=== PATIENT | male | born 1995 | race African-American/Black ===

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

== ENCOUNTER 2018-09-01 16:15 | Emergency (ER) | payer OTHER ==
[~2018-09-01] VITALS: Ht 167.6 cm; Wt 90.0 kg
[~2018-09-01 16:15] MED LIST: ALBU17IN INH; FLON1SPR; VALA500T5 PO; ZOFR4TAB14 PO; ZYRT10CA PO
[2018-09-01] MEDS ORDERED: IBUP-1114 PO (17:27)
[2018-09-01 18:12] VITALS: BP 139/79
--- NOTE | 2018-09-02 07:51 | REP ---
RIGHT SECOND DIGIT, FOUR VIEWS: Four views of the right second digit performed. There is no acute fracture, dislocation or intrinsic bone disease. IMPRESSION: No fracture or dislocation. Electronically Signed by Isaiah Mora MD 09/02/2018 08:41 A
== END 2018-09-01 18:41 | disposition home or self-care (01) ==
LOC: M ED 16:15
DX: S60.021A Contusion of right index finger without damage to nail, initial encounter (principal); W23.0XXA Caught, crushed, jammed, or pinched between moving objects, initial encounter; Y92.099 Unspecified place in other non-institutional residence as the place of occurrence of the external cause; Y93.89 Activity, other specified; Y99.9 Unspecified external cause status; J45.909 Unspecified asthma, uncomplicated; Z88.0 Allergy status to penicillin

== ENCOUNTER 2018-11-24 01:37 | Emergency (ER) | payer OTHER ==
[~2018-11-24] VITALS: Ht 167.6 cm; Wt 88.6 kg
[~2018-11-24 01:37] MED LIST changes: +IBUP-1114 PO
[2018-11-24] MEDS ORDERED: KETOROLAC 60 MG/2 ML VIAL (J1885) IM ONE (02:30)
[2018-11-24 03:04] VITALS: BP 141/75
--- NOTE | 2018-11-24 07:37 | REP ---
Clinical: Trauma. Technique: AP, lateral, bilateral oblique views of the right elbow. Findings: Oblique view demonstrates a very subtle lucency through the proximal radial head and subtle nondisplaced fracture cannot definitively be excluded. Presumptive treatment and followup examination may be warranted. No other fracture dislocation is appreciated. Anterior and posterior fat pads appear relatively normal in position suggesting that the possibility of radial head fracture actually represents lucency created by technical factors and adjacent soft tissue. Impression: Cannot definitively exclude a subtle nondisplaced radial head fracture. Correlation and follow up is recommended. Electronically Signed by Davonte Blanca MD 11/24/2018 07:28 A
--- NOTE | 2018-11-24 12:40 | ED PDOC ---
Post-Departure Follow-Up ED foam charger asked to call pt, disclose possible radial head fx, ensure sling an d refer to jaspreet. formal report of right elbow faxed to Yasir Acuna MD Nov 24, 2018 12:40
== END 2018-11-24 03:06 | disposition home or self-care (01) ==
LOC: M ED 01:37
DX: S50.11XA Contusion of right forearm, initial encounter (principal); R93.7 Abnormal findings on diagnostic imaging of other parts of musculoskeletal system; W21.81XA Striking against or struck by football helmet, initial encounter; Y92.410 Unspecified street and highway as the place of occurrence of the external cause; Y93.61 Activity, american tackle football; Y99.8 Other external cause status; J45.909 Unspecified asthma, uncomplicated; D84.9 Immunodeficiency, unspecified; Z88.0 Allergy status to penicillin
CPT/HCPCS: 73080; 96372; 99284; J1885

== ENCOUNTER 2018-12-13 09:45 | Outpatient (RCR) | payer OTHER | END 2018-12-16 | LOC: M OT 09:45 | DX: S52.124D Nondisplaced fracture of head of right radius, subsequent encounter for closed fracture with routine healing (principal) ==

== ENCOUNTER 2019-01-07 13:00 | Outpatient (RCR) | payer OTHER | END 2019-01-16 | LOC: M OT 13:00 | DX: S52.124D Nondisplaced fracture of head of right radius, subsequent encounter for closed fracture with routine healing (principal) ==

== ENCOUNTER 2019-02-18 18:11 | Emergency (ER) | payer OTHER ==
[~2019-02-18] VITALS: Ht 167.6 cm; Wt 78.2 kg
[2019-02-18] MEDS ORDERED: ONDANSETRON 4 MG ORAL DISINTEGRATING TAB (Q0162 PER 1MG) PO ONE (20:15)
[2019-02-18 20:17] LABS: BASO % 0.2 % (0.0-1.0); EOS # 0.1 10^3/uL (0.0-0.5); EOS % 1.3 % (0.0-3.0); HEMATOCRIT 50.5 % (42.0-52.0); HEMOGLOBIN 16.5 g/dl (13.5-17.5); LYMPH # 0.8 10^3/uL (1.5-5.0); LYMPH % 15.8 % (24.0-44.0); MEAN CORPUSCULAR HEMOGLOBIN 27.1 pg (27.0-33.0); MEAN CORPUSCULAR HGB CONC 32.7 g/dl (32.0-36.5); MEAN CORPUSCULAR VOLUME 82.9 fl (80.0-96.0); MONO # 0.3 10^3/uL (0.0-0.8); MONO % 6.2 % (0.0-5.0); NEUTROPHILS # 4.1 10^3/uL (1.5-8.5); NEUTROPHILS % 76.3 % (36.0-66.0); PLATELET COUNT, AUTOMATED 314 10^3/uL (150-450); RED BLOOD COUNT 6.09 10^6/uL (4.30-6.10); WHITE BLOOD COUNT 5.3 10^3/uL (4.0-10.0)
[2019-02-18] MEDS ORDERED: DICYCLOMINE 10 MG CAP PO ONE (20:30)
[2019-02-18] MEDS ORDERED: ACETAMINOPHEN 325 MG TAB PO ONE (20:30)
[2019-02-18 20:50] LABS: ALBUMIN 4.1 GM/DL (3.2-5.2); ALT/SGPT 51 U/L (12-78); BILIRUBIN,DIRECT 0.1 MG/DL (0.0-0.2); BILIRUBIN,TOTAL 0.8 MG/DL (0.2-1.0); BLOOD UREA NITROGEN 7 MG/DL (7-18); CALCIUM LEVEL 9.4 MG/DL (8.5-10.1); CARBON DIOXIDE LEVEL 23 MEQ/L (21-32); CHLORIDE LEVEL 103 MEQ/L (98-107); CREATININE FOR GFR 0.92 MG/DL (0.70-1.30); GLOMERULAR FILTRATION RATE > 60.0 (>60); GLUCOSE, FASTING 298 MG/DL (70-100); LIPASE 113 U/L (73-393); POTASSIUM SERUM 4.9 MEQ/L (3.5-5.1); SODIUM LEVEL 135 MEQ/L (136-145); TOTAL PROTEIN 8.3 GM/DL (6.4-8.2)
[2019-02-18 21:45] LABS: INFLUENZA A AMPLIFICATION NEGATIVE (NEGATIVE); INFLUENZA B AMPLIFICATION NEGATIVE (NEGATIVE)
--- NOTE | 2019-02-18 21:51 | REPVR ---
PROCEDURE INFORMATION: Exam: CT Abdomen And Pelvis Without Contrast Exam date and time: 02/18/2019 8:41 PM Age: 23 years old Clinical history: Abdominal pain; Localized; Left lower quadrant (llq); Additional info: Llq pain, contrast ax TECHNIQUE: Imaging protocol: Computed tomography of the abdomen and pelvis without contrast. Radiation optimization: All CT scans at this facility use at least one of these dose optimization techniques: automated exposure control; mA and/or kV adjustment per patient size (includes targeted exams where dose is matched to clinical indication); or iterative reconstruction. COMPARISON: No relevant prior studies available. FINDINGS: Liver: Normal. No mass. Gallbladder and bile ducts: Normal. No calcified stones. No ductal dilation. Pancreas: Normal. No ductal dilation. Spleen: Normal. No splenomegaly. Adrenals: Normal. No mass. Kidneys and ureters: Normal. No hydronephrosis. Stomach and bowel: Unremarkable. No obstruction. No mucosal thickening. Appendix: No evidence of appendicitis. Intraperitoneal space: Unremarkable. No free air. No significant fluid collection. Vasculature: Unremarkable. No abdominal aortic aneurysm. Lymph nodes: Unremarkable. No enlarged lymph nodes. Bladder: Unremarkable as visualized. Reproductive: Unremarkable as visualized. Bones/joints: Unremarkable. No acute fracture. Soft tissues: Unremarkable. IMPRESSION: No obstructive uropathy or acute inflammatory process. Electronically signed by: Andrez Sommers On 02/18/2019 21:51:40 PM
[2019-02-18 22:29] VITALS: BP 136/79
[2019-02-18] MEDS ORDERED: ONDA4TAB6 PO (22:54)
[2019-02-18 23:21] LABS: HEMOGLOBIN A1c 12.9 %
--- NOTE | 2019-02-19 15:37 | ECGEPIP ---
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
== END 2019-02-18 23:17 | disposition home or self-care (01) ==
LOC: M ED 18:11
DX: R10.32 Left lower quadrant pain (principal); R11.2 Nausea with vomiting, unspecified; J45.909 Unspecified asthma, uncomplicated; D83.9 Common variable immunodeficiency, unspecified; Z88.0 Allergy status to penicillin; Z91.048 Other nonmedicinal substance allergy status
CPT/HCPCS: 36415; 74176; 80048; 80076; 81001; 83036; 83690; 85025; 87502; 93005; 99284; Q0162

== ENCOUNTER → 2019-03-04 | Outpatient (REF) | payer OTHER, MEDICAID ==
[~2019-03-04] MED LIST changes: +ONDA4TAB6 PO
[2019-03-04 14:07] LABS: BASO % 0.5 % (0.0-1.0); EOS # 0.2 10^3/uL (0.0-0.5); EOS % 4.3 % (0.0-3.0); HEMATOCRIT 46.4 % (42.0-52.0); HEMOGLOBIN 14.6 g/dl (13.5-17.5); LYMPH # 1.6 10^3/uL (1.5-5.0); LYMPH % 41.4 % (24.0-44.0); MEAN CORPUSCULAR HEMOGLOBIN 27.5 pg (27.0-33.0); MEAN CORPUSCULAR HGB CONC 31.5 g/dl (32.0-36.5); MEAN CORPUSCULAR VOLUME 87.5 fl (80.0-96.0); MONO # 0.5 10^3/uL (0.0-0.8); MONO % 13.6 % (0.0-5.0); NEUTROPHILS # 1.6 10^3/uL (1.5-8.5); NEUTROPHILS % 39.9 % (36.0-66.0); PLATELET COUNT, AUTOMATED 340 10^3/uL (150-450)
[2019-03-04 14:17] LABS: ALBUMIN 3.7 GM/DL (3.2-5.2); ALT/SGPT 51 U/L (12-78); BILIRUBIN,TOTAL 0.6 MG/DL (0.2-1.0); BLOOD UREA NITROGEN 10 MG/DL (7-18); CALCIUM LEVEL 9.1 MG/DL (8.5-10.1); CARBON DIOXIDE LEVEL 28 MEQ/L (21-32); CHLORIDE LEVEL 105 MEQ/L (98-107); CHOLESTEROL LEVEL 134 MG/DL (<200); CHOLESTEROL RISK RATIO 5.583 (<5); CREATININE FOR GFR 0.81 MG/DL (0.70-1.30); FREE T4 1.04 NG/DL (0.76-1.46); GLOMERULAR FILTRATION RATE > 60.0 (>60); GLUCOSE, FASTING 228 MG/DL (70-100); HDL CHOLESTEROL 24 MG/DL (>40); LDL CHOLESTEROL 89 MG/DL (<100); NON-HDL-C 110 MG/DL; POTASSIUM SERUM 4.2 MEQ/L (3.5-5.1); SODIUM LEVEL 138 MEQ/L (136-145); TOTAL PROTEIN 7.1 GM/DL (6.4-8.2); TRIGLYCERIDES LEVEL 105 MG/DL (<150)
[2019-03-04 14:20] LABS: TOTAL 25(OH) VITAMIN D 14.2 NG/ML (30.0-100.0)
[2019-03-04 14:29] LABS: HEMOGLOBIN A1c 11.4 %
== END ==
LOC: M LAB REF 13:40
PROVIDERS: ATTEND Nurse Practitioner Family
DX: Z13.9 Encounter for screening, unspecified (principal); Z13.29 Encounter for screening for other suspected endocrine disorder

== ENCOUNTER 2019-03-27 07:37 | Inpatient (IN) | payer MEDICAID, OTHER ==
[~2019-03-27] VITALS: Ht 167.6 cm; Wt 78.0 kg
[2019-03-27] MEDS ORDERED: IBUPROFEN 800 MG TAB PO ONE (08:00)
[2019-03-27] MEDS ORDERED: NS 1,000 ML IV ONE (08:15)
[2019-03-27 08:54] LABS: BASO % 0.2 % (0.0-1.0); EOS # 0.1 10^3/uL (0.0-0.5); EOS % 0.7 % (0.0-3.0); HEMATOCRIT 40.8 % (42.0-52.0); HEMOGLOBIN 13.4 g/dl (13.5-17.5); LYMPH # 0.9 10^3/uL (1.5-5.0); LYMPH % 9.1 % (24.0-44.0); MEAN CORPUSCULAR HEMOGLOBIN 28.3 pg (27.0-33.0); MEAN CORPUSCULAR HGB CONC 32.8 g/dl (32.0-36.5); MEAN CORPUSCULAR VOLUME 86.3 fl (80.0-96.0); MONO # 0.5 10^3/uL (0.0-0.8); NEUTROPHILS # 8.2 10^3/uL (1.5-8.5); NEUTROPHILS % 84.8 % (36.0-66.0); PLATELET COUNT, AUTOMATED 339 10^3/uL (150-450); RED BLOOD COUNT 4.73 10^6/uL (4.30-6.10); WHITE BLOOD COUNT 9.6 10^3/uL (4.0-10.0)
[2019-03-27 09:27] LABS: MONO SCRN NEGATIVE (NEGATIVE)
[2019-03-27 09:28] LABS: ALBUMIN 3.6 GM/DL (3.2-5.2); ALT/SGPT 39 U/L (12-78); BILIRUBIN,DIRECT 0.2 MG/DL (0.0-0.2); BILIRUBIN,TOTAL 1.7 MG/DL (0.2-1.0); LIPASE 76 U/L (73-393); TOTAL PROTEIN 7.4 GM/DL (6.4-8.2)
[2019-03-27 09:38] LABS: INFLUENZA A AMPLIFICATION NEGATIVE (NEGATIVE); INFLUENZA B AMPLIFICATION NEGATIVE (NEGATIVE)
[2019-03-27] MEDS ORDERED: LevoFLOXacin IV 750 MG in IV 1 EA IV ONE (10:00)
[2019-03-27 10:13] LABS: IMMUNOGLOBULIN G 897 MG/DL (681-1648); IMMUNOGLOBULIN M 64.7 MG/DL (40-230)
[2019-03-27] MEDS ORDERED: ACETAMINOPHEN TAB 650MG DOSE (2X325MG) PO PRN (11:00)
[2019-03-27] MEDS ORDERED: ALBUTEROL 90 MCG/ACT 8GM HFA INHALER INH PRN (11:00)
[2019-03-27] MEDS ORDERED: guaiFENesin DM LIQ 10ML UD PO PRN (11:00)
[2019-03-27] MEDS: NS 1,000 ML IV SCH ×2 (11:06→22:02)
--- NOTE | 2019-03-27 11:18 | HPEPDOC ---
General Date of Admission 03/27/19 Date of Service: Mar 27, 2019 Chief Complaint The patient is a 23-year-old male admitted with a reason for visit of Cold Symptoms. Source: Patient Exam Limitations: No limitations Timing/Duration: Other (since last ) Severity: Moderate Associated Symptoms: Fever, Chills, Headaches History of Present Illness Old -[place] male with past medical history of common variable immunodeficiency disorder developed fever, chills, cough with sputum with blood since last and he came to work today and was sent to ED for further care. In the emergency room he was found to be febrile with a 101 and chest x- ray shows right upper lobe infiltrate and we were called in for admission. Patient denies any other complaints including chest pain, nausea, vomiting, diarrhea. Home Medications No Active Prescriptions or Reported Meds Allergies Coded Allergies: Contrast Media (Verified Allergy, Unknown, 02/18/19) PT SAYS HE "PASSES OUT" AND GETS "CHILLS" amoxicillin (Verified Allergy, Unknown, 09/01/18) clavulanic acid (Verified Allergy, Unknown, 09/01/18) Past Medical History Medical History common vaeriable immunodeficiency disorder Surgical History None Social History * Smoker: Denies Alcohol: Denies Drugs: denies A-FIB/CHADSVASC A-FIB History Current/History of A-Fib/PAF?: No Review of Systems Constitutional: Reports: Chills, Fever Eyes: Denies: Pain, Vision change, Conjunctivae inflammation, Eyelid inflammation, Redness, Other ENT: Denies: Head Aches, Ear Pain, Dysphagia, Sinus Congestion, Post Nasal Drip, Sore Throat, Epistaxis, Other Symptoms Skin: Denies: Rash, Lesions, Jaundice, Bruising, Itching, Dry, Breakdown, Nail Changes, Other Pulmonary: Reports: Dyspnea, Cough Cardiovascular: Denies: Chest Pain, Palpitations, Orthopnea, Paroxysmal Noc. Dyspnea, Edema, Lt Headedness, Other Symptoms Gastrointestinal: Denies: Nausea, Vomiting, Abdominal Pain, Diarrhea, Constipation, Melena, Hematochezia, Other Symptoms Genitourinary: Denies: Dysuria, Frequency, Incontinence, Hematuria, Retention, Other Symptoms Hematologic: Denies: Bruising, Bleeding Excessively, Petecchia, Purpura, Enlarged Lymph Nodes, Other Hematologic Endocrine: Denies: Polydipsia, Polyphagia, Polyuria, Heat Intolerance, Cold Intolerance, Other Endocrine Sx Musculoskeletal: Denies: Neck Pain, Back Pain, Shoulder Pain, Arm Pain, Hand Pain, Leg Pain, Foot Pain, Joint Pain, Muscle Pain, Spasms, Other Symptoms Neurological: Denies: Weakness, Numbness, Incoordination, Change in speech, Confusion, Seizures, Other Symptoms Psych: Denies: Mood Normal, Anxiety, Depression, Memory Issues, Thoughts of Self Harm, Anger, Thoughts of Harming Other, Other Psych Physical Examination General Exam: Positive: Alert, Cooperative Eye Exam: Positive: PERRLA, Conjunctiva & lids normal ENT Exam: Positive: Atraumatic, Mucous membr. moist/pink Neck Exam: Positive: Supple Chest Exam: Positive: Rhonchi (bronchitis audible right upper lobe) Heart Exam: Positive: Rate Normal, Normal S1, Normal S2 Abdomen Exam: Positive: Normal bowel sounds, Soft, Tenderness Extremity Exam: Positive: Normal pulses Skin Exam: Positive: Nl turgor and temperature Neuro Exam: Positive: Normal Gait, Strength at 5/5 X4 ext, Cranial Nerves 3-12 NL Psych Exam: Positive: Mental status NL, Mood NL, Oriented x 3 Vital Signs Vital Signs Date Time Temp Pulse Resp B/P (MAP) Pulse Ox O2 Delivery O2 Flow Rate FiO2 03/27/19 09:30 100.3 107 18 127/59 (81) 100 Room Air Laboratory Data Labs 24H Laboratory Tests 2 03/27/19 08:19: Immature Granulocyte % (Auto) 0.2, Neutrophils (%) (Auto) 84.8H, Lymphocytes (%) (Auto) 9.1L, Monocytes (%) (Auto) 5.0, Eosinophils (%) (Auto) 0.7, Basophils (%) (Auto) 0.2, Neutrophils # (Auto) 8.2, Lymphocytes # (Auto) 0.9L, Monocytes # (Auto) 0.5, Eosinophils # (Auto) 0.1, Basophils # (Auto) 0.0, Nucleated Red Blood Cells % (auto) 0.0, Total Bilirubin 1.7H, Direct Bilirubin 0.2, Aspartate Amino Transf (AST/SGOT) 89H, Alanine Aminotransferase (ALT/SGPT) 39, Alkaline Phosphatase 143H, Total Protein 7.4, Albumin 3.6, Albumin/Globulin Ratio 0.95L, Lipase 76, Immunoglobulin A 631.0H, Immunoglobulin G 897, Immunoglobulin M 64.7, Monoscreen NEGATIVE, Influenza Type A (RT-PCR) NEGATIVE, Influenza Type B (RT- PCR) NEGATIVE, Respiratory Syncytial Virus (RT-PCR NEGATIVE 03/27/19 08:38: POC Glucose (Misc Panel) 191H, POC Sodium (Misc Panel) 137, POC Potassium (Misc Panel) 3.6, POC Chloride (Misc Panel) 103, POC Total CO2 (Misc Panel) 24.0, POC Blood Urea Nitrogen (Misc Panel 10, POC Ionized Calcium (Misc Panel) 4.3L, POC Creatinine (Misc Panel) 0.6, POC Hematocrit (Misc Panel) 42.0 03/27/19 08:47: POC Lactate (Misc Panel) 1.79 CBC/BMP Laboratory Tests 03/27/19 08:19 Microbiology Microbiology 03/27/19 Group A Streptococcus Screen ([facility]), Received Pending Problems (1) Right upper lobe pneumonia Status: Acute Problem Text: 23 years old -Ecu[place] male with common variable immunodeficiency disorder presented with right upper lobe pneumonia. Is influenza, Ma screen. An RSV screen were negative, chest x-ray consistent with right upper lobe infiltrate, IgG 897, IgA 631, IgM 64.7. WBC count of 9.6, hemoglobin 13.4, hematocrit 40.8, platelets of 339, electrolytes are normal Admit patient to medical floor with droplet isolation Patient has been started on IV Levaquin. I'll continue the same Continue normal saline 800 mL per hour , Tylenol when necessary DuoNeb when necessary Dr. Adams was called from ED and will place consult for infectious disease IgG levels are essentially within normal limits. DVT prophylaxis with Lovenox Activity as tolerated Diet regular (2) Common variable immunodeficiency Status: Acute Problem Text: 23 years old -[place]cu[place] male with common variable immunodeficiency disorder presented with right upper lobe pneumonia. Is influenza, Ma screen. An RSV screen were negative, chest x-ray consistent with right upper lobe infiltrate, IgG 897, IgA 631, IgM 64.7. WBC count of 9.6, hemoglobin 13.4, hematocrit 40.8, platelets of 339, electrolytes are normal Normal IgA, IgG and IgM levels Further, as per ID recommendations Plan / VTE VTE Prophylaxis Ordered?: Yes CAROLINA GONZALEZ MD Mar 27, 2019 11:18
--- NOTE | 2019-03-27 11:29 | REP ---
Chest x-ray: Two views. History: Abdomen pain. No comparison chest x-ray. Findings: There is an infiltrate in the distribution of the right upper lobe consistent with pneumonia. Pleural angles are sharp. Left lung is clear. Heart is not enlarged. Pulmonary vasculature is not increased. The visualized bowel gas pattern in the upper abdomen is normal. Impression: Right upper lobe infiltrate consistent with pneumonia. Electronically Signed by Roberth Middleton MD 03/27/2019 08:55 A
[2019-03-27 11:33] VITALS: BP 111/84
[2019-03-27] MEDS: ENOXAPARIN 40 MG/0.4 ML SYRINGE (J1650) SC SCH (11:45)
[2019-03-27 14:00] VITALS: BP 116/83
[2019-03-27 16:58] LABS: BLOOD UREA NITROGEN 9 MG/DL (7-18); C REACTIVE PROTEIN QUANTITATIV 5.35 MG/DL (0.00-0.30); CALCIUM LEVEL 8.3 MG/DL (8.5-10.1); CARBON DIOXIDE LEVEL 24 MEQ/L (21-32); CHLORIDE LEVEL 109 MEQ/L (98-107); CREATININE FOR GFR 0.75 MG/DL (0.70-1.30); GLOMERULAR FILTRATION RATE > 60.0 (>60); GLUCOSE, FASTING 124 MG/DL (70-100); POTASSIUM SERUM 3.6 MEQ/L (3.5-5.1); SODIUM LEVEL 139 MEQ/L (136-145)
[2019-03-27 22:00] VITALS: BP 145/81
--- NOTE | 2019-03-28 00:30 | CR ---
DATE OF CONSULTATION: 03/27/2019 INFECTIOUS DISEASE CONSULTATION Asked to consult by hospitalist for evaluation of pneumonia in a patient with a history of common variable immunodeficiency. HISTORY OF PRESENT ILLNESS: Godfrey is a 23-year-old -[place] African gentleman who carries a diagnosis of common variable immunodeficiency during his childhood during which he had been treated with multiple treatments with IVIG through [employer]. He states his last IVIG was when he was 18 years old. He had been doing fairly well and his IgG levels had remained stable. The patient developed a couple days prior to admission fever, chills and cough with sputum productive of yellow to bloody phlegm. 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 In the emergency room, he had a temperature of 101 and a chest x-ray showed a right upper lobe infiltrate. The patient was admitted to the hospital and started on IV Levaquin. He denied any pleuritic chest pain. No nausea, vomiting or diarrhea. He had a mild headache. No neck stiffness. HOME MEDICATIONS: None. ALLERGIES: CONTRAST MEDIA - states he passes out and gets chills. AUGMENTIN - allergy unknown. PAST MEDICAL HISTORY: Common variable immunodeficiency, although workup done in 2011 showed an IgG level of 1100, diphtheria antibody more than 3 and tetanus antibody of 2.8. Removal of Rowland Pfiohu-O-Egty by Dr. Sun in 2012. History of influenza A, history of attention-deficit hyperactivity disorder (ADHD) and generalized anxiety disorder for which he followed up with psychiatry as a child, nondisplaced fracture of the elbow. Recurrent history of pneumonia. SURGICAL HISTORY: Multiple Lprvep-R-Isol placements and removal. SOCIAL HISTORY: He does not smoke, drink, or use drugs. He went to college after he graduated from [employer]. 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 He states wants to go back to school to be a trauma surgeon. He is . He has a 2-year-old son. His is going to school to be a social organization professor. REVIEW OF SYSTEMS: He did complain of fever, chills. He had a headache but denies any visual changes/blurry vision. He has no rashes. No chest pain. He has a cough, mild shortness of breath. No nausea, vomiting or diarrhea. No dysuria, hematuria or flank pain. No upper or lower extremity weakness. PHYSICAL EXAMINATION: He is a healthy looking gentleman in no acute distress. Temperature: Maximum temperature (T max) was 101 at 7:00 a.m., currently 98.1, pulse 97, respirations 18, blood pressure 116/83, oxygen saturation (O2 sat) 98% on room air. Heart: Normal, S1, S2. No murmurs, rubs or gallops. Lungs are clear. No wheezes, rales or rhonchi. Abdomen is soft, nontender. No hepatosplenomegaly. Back: No costovertebral angle or lumbosacral tenderness. Oropharynx is clear with no thrush. No lesions. Chest wall has some scars of Bkxxuc-T-Aejd placement. LABORATORY DATA: White count 9.6, hemoglobin 13.4, hematocrit 40.8, platelets 339, 85% neutrophils, 9% lymphocytes, 5% monocytes. Sodium 139, potassium 3.6, chloride 109, bicarbonate 24, BUN 9, creatinine 0.75, glucose 124, calcium 8.3, CRP 5.35, bilirubin 1.7, AST 89, ALT 39, alkaline phosphatase 143, total protein 7.4, albumin 3.6, lipase 76. Immunoglobulin level IgG total 897, IgA 631, IgM 64.7. Chest x-ray showed a right upper lobe pneumonia. Blood cultures have been drawn, are pending. Respiratory panel pending. Group A strep pending. IMPRESSION: This is a 23-year-old gentleman with a history of common variable immunodeficiency, although labs in 2012 were within normal, including tetanus antibody, diphtheria antibody and IgG levels. The patient has not received IVIG since the age of 18; 5 years. He presents with right upper lobe pneumonia. 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 He has improved with IV Levaquin. The patient is not septic. Currently his IgG level is normal. He has elevated IgA levels, could be from infection or autoimmune etiology PLAN: 1. Agree with current antibiotic choice with Levaquin 750 mg daily. This could be changed to oral as its bioavailability is 95%. The patient does not have any nausea or vomiting and is not hypoxic. 2. Obtain immunoglobulin IgG subsets as well as tetanus and diphtheria antibodies. HIV test was added. Please make him a followup appointment with Dr. Cha. Patient thinks he will need IV immunoglobulins again, but I did discuss with him that his IgG level was normal, and at this point, I do not see an indication for that unless further studies show some subclass deficiency. IgG 1, 2, 3 and 4 subclasses have been added. At this point, I do not see any indication for IgG infusion. Thank you for consultation. MARCELLO
[2019-03-28 06:00] VITALS: BP 123/57
[2019-03-28 06:54] LABS: TOTAL PROTEIN 6.8 GM/DL (6.4-8.2)
[2019-03-28] MEDS: NS 1,000 ML IV SCH (08:22)
[2019-03-28] MEDS: ENOXAPARIN 40 MG/0.4 ML SYRINGE (J1650) SC SCH (08:23)
[2019-03-28] MEDS ORDERED: LevoFLOXacin IV 750 MG in IV 1 EA IV SCH (10:00)
[2019-03-28] MEDS ORDERED: LEVA750T7 PO (10:06)
--- NOTE | 2019-03-28 12:16 | DS.PDOC ---
Discharge Summary General Date of Admission Mar 27, 2019 at 10:47 Date of Discharge 03/28/19 Discharge Summary PROCEDURES PERFORMED DURING STAY: None. ADMITTING DIAGNOSES: 1. Right upper lobe pneumonia. DISCHARGE DIAGNOSES: 1. Right upper lobe pneumonia, common variable immunodeficiency deficiency disorder. COMPLICATIONS/CHIEF COMPLAINT: Rt Upper Lobe Pneumonia. HISTORY OF PRESENT ILLNESS: Old -Gambian male with past medical history of common variable immunodeficiency disorder developed fever, chills, cough with sputum with blood since last and he came to work today and was sent to ED for further care. In the emergency room he was found to be febrile with a 101 and chest x-ray shows right upper lobe infiltrate and we were called in for admission. Patient denies any other complaints including chest pain, nausea, vomiting, diarrhea.. HOSPITAL COURSE: Patient was admitted with a right upper lobe pneumonia and was started on Levaquin. Patient's immunoglobulin levels were within normal range and patient also was seen by infectious disease. Patient is clinically stable, afebrile with normal blood work and will be discharged home on by mouth Levaquin as per infectious disease recommendations. The subset of immunoglobulin has been ordered and will be followed up as an outpatient with Dr. Adams. Niecy can be discharged home on all his current meds. DISCHARGE MEDICATIONS: Please see below. ALLERGIES: Please see below. PHYSICAL EXAMINATION ON DISCHARGE: VITAL SIGNS: Please see below. GENERAL: Within normal limits HEENT: PERRLA. Extraocular muscles intact NECK: Supple. Negative JVD, negative lymphadenopathy CARDIOVASCULAR EXAMINATION: S1, S2, regular RESPIRATORY EXAMINATION: Clear to A&P ABDOMINAL EXAMINATION: Benign EXTREMITIES: No clubbing, cyanosis, edema SKIN: Normal NEUROLOGICAL EXAMINATION: . No focal motor sensory deficit PSYCHIATRIC EXAMINATION: Normal LABORATORY DATA: Please see below. IMAGING: Chest x-ray consistent with right upper lobe infiltrate PROGNOSIS: Good ACTIVITY: As tolerated. DIET: As tolerated DISCHARGE PLAN: As per discharge planning DISPOSITION: . Home DISCHARGE INSTRUCTIONS: 1. As per discharge instructions. ITEMS TO FOLLOWUP ON ON OUTPATIENT: 1. Follow with Dr. Adams in one week. DISCHARGE CONDITION: Stable. TIME SPENT ON DISCHARGE: 38 minutes. Vital Signs/I&Os Vital Signs Date Time Temp Pulse Resp B/P (MAP) Pulse Ox O2 Delivery O2 Flow Rate FiO2 03/28/19 06:00 97.6 94 18 123/57 (79) 93 Room Air I&O- Last 24 Hours up to 6 AM 03/28/19 06:00 Intake Total 5500 ml Output Total 1650 ml Balance 3850 ml Laboratory Data Labs 24H Laboratory Tests 2 03/27/19 16:25: Anion Gap 6L, Glomerular Filtration Rate > 60.0, Calcium Level 8.3L, C-Reactive Protein, Quantitative 5.35H 03/27/19 16:55: 03/28/19 05:05: Total Protein (PEP) 6.8 03/28/19 11:00: CBC/BMP Laboratory Tests 03/27/19 16:25 Microbiology Microbiology 03/27/19 Respiratory Virus Panel (PCR) ([facility]) - Final, Complete 03/27/19 Blood Culture, Received Pending 03/27/19 Group A Streptococcus Screen ([facility]) - Final, Complete Discharge Medications Scheduled Levofloxacin (Levaquin) 750 Mg Tablet, 750 MG PO DAILY Allergies Coded Allergies: Contrast Media (Verified Allergy, Unknown, 02/18/19) PT SAYS HE "PASSES OUT" AND GETS "CHILLS" amoxicillin (Verified Allergy, Unknown, 09/01/18) clavulanic acid (Verified Allergy, Unknown, 09/01/18) CAROLINA GONZALEZ MD Mar 28, 2019 12:16
[2019-03-28 12:38] VITALS: BP 147/98
[2019-03-28 17:09] LABS: HIV 1&2 SCREEN CENTAUR NEGATIVE (NEGATIVE)
[2019-04-01 00:06] LABS: BODY FLUID CULTURE Not indicated. (.); LEGIONELLA ANTIGEN URINE Negative (Negative); ORGANISM ID Not indicated. (.); SPECIMEN SOURCE Urine (.); URINE STREP PNEUMONIAE ANTIGEN Negative (Negative)
== END 2019-03-28 12:33 | disposition home or self-care (01) | DRG 139 ==
LOC: M ED 07:37 → M ED INP 10:47 → ENRESERV 11:06 → M MSPAV 11:34
PROVIDERS: ADMIT Internal Medicine; ATTEND Internal Medicine
DX: J18.9 Pneumonia, unspecified organism (principal); D83.9 Common variable immunodeficiency, unspecified; Z91.041 Radiographic dye allergy status; Z88.0 Allergy status to penicillin; Z88.8 Allergy status to other drugs, medicaments and biological substances

== ENCOUNTER → 2019-03-31 | Outpatient (REF) | payer OTHER ==
[~2019-03-31] MED LIST changes: +LEVA750T7 PO
[2019-03-31 20:14] LABS: ALBUMIN 3.9 GM/DL (3.2-5.2); ALT/SGPT 39 U/L (12-78); BILIRUBIN,TOTAL 0.9 MG/DL (0.2-1.0); BLOOD UREA NITROGEN 8 MG/DL (7-18); CALCIUM LEVEL 9.6 MG/DL (8.5-10.1); CARBON DIOXIDE LEVEL 24 MEQ/L (21-32); CHLORIDE LEVEL 106 MEQ/L (98-107); CREATININE FOR GFR 0.83 MG/DL (0.70-1.30); GLOMERULAR FILTRATION RATE > 60.0 (>60); GLUCOSE, FASTING 114 MG/DL (70-100); POTASSIUM SERUM 3.9 MEQ/L (3.5-5.1); SODIUM LEVEL 139 MEQ/L (136-145)
[2019-03-31 20:24] LABS: HEMOGLOBIN A1c 8.9 %
== END ==
LOC: M LAB REF 19:33
PROVIDERS: ATTEND Nurse Practitioner Family
DX: Z13.9 Encounter for screening, unspecified (principal)

== ENCOUNTER → 2019-05-23 | Outpatient (CLI) | payer OTHER ==
[2019-05-23 17:25] LABS: RUBELLA IgG QUALITATIVE IMMUNE (IMMUNE)
== END ==
LOC: M LAB 16:22
PROVIDERS: ATTEND Allergy & Immunology Allergy
DX: D80.3 Selective deficiency of immunoglobulin G [IgG] subclasses (principal)

== ENCOUNTER 2021-04-25 03:49 | Inpatient (IN) | payer OTHER ==
[~2021-04-25] VITALS: Ht 170.2 cm; Wt 82.2 kg
[2021-04-25 04:14] LABS: VENOUS BASE EXCESS -4.5 (-2.0-2.0); VENOUS O2 SATURATION 94.2 % (60.0-80.0); VENOUS PARTIAL PRESSURE CO2 40.1 mmHg (38.0-50.0); VENOUS PARTIAL PRESSURE O2 77.1 mmHg (30.0-50.0); VENOUS PH 7.337 UNITS (7.330-7.430); VENOUS STANDARD HCO3 20.7 MEQ/L; VENOUS TOTAL CO2 22.2 MEQ/L (24.0-28.0)
[2021-04-25 04:18] LABS: BASO % 0.3 % (0.0-1.0); EOS # 0.1 10^3/uL (0.0-0.5); EOS % 0.5 % (0.0-3.0); HEMATOCRIT 45.2 % (42.0-52.0); HEMOGLOBIN 14.4 g/dl (13.5-17.5); LYMPH # 1.5 10^3/uL (1.5-5.0); LYMPH % 12.2 % (24.0-44.0); MEAN CORPUSCULAR HEMOGLOBIN 28.4 pg (27.0-33.0); MEAN CORPUSCULAR HGB CONC 31.9 g/dl (32.0-36.5); MEAN CORPUSCULAR VOLUME 89.2 fl (80.0-96.0); MONO # 0.3 10^3/uL (0.0-0.8); MONO % 2.8 % (2.0-8.0); NEUTROPHILS # 10.2 10^3/uL (1.5-8.5); PLATELET COUNT, AUTOMATED 337 10^3/uL (150-450); RED BLOOD COUNT 5.07 10^6/uL (4.30-6.10); WHITE BLOOD COUNT 12.2 10^3/uL (4.0-10.0)
[2021-04-25 04:40] LABS: CK-MB VALUE MASS < 1.0 NG/ML (<3.6); CPK CREATINE PHOSPHOKINASE 97 U/L (39-308); MB/CK RELATIVE INDEX 1.03 (< OR =4)
[2021-04-25 04:44] LABS: ALBUMIN 3.9 GM/DL (3.2-5.2); ALT/SGPT 106 U/L (12-78); BILIRUBIN,DIRECT 0.1 MG/DL (0.0-0.2); BILIRUBIN,TOTAL 0.8 MG/DL (0.2-1.0); BLOOD UREA NITROGEN 11 MG/DL (7-18); CALCIUM LEVEL 9.4 MG/DL (8.5-10.1); CARBON DIOXIDE LEVEL 28 MEQ/L (21-32); CHLORIDE LEVEL 102 MEQ/L (98-107); CREATININE FOR GFR 1.02 MG/DL (0.70-1.30); GLOMERULAR FILTRATION RATE > 60.0 (>60); GLUCOSE, FASTING 165 MG/DL (70-100); POTASSIUM SERUM 5.5 MEQ/L (3.5-5.1); SODIUM LEVEL 137 MEQ/L (136-145); TOTAL PROTEIN 8.3 GM/DL (6.4-8.2)
[2021-04-25] MEDS ORDERED: ACETAMINOPHEN TAB 650MG DOSE (2X325MG) PO ONE (04:55)
[2021-04-25] MEDS ORDERED: NS 1,000 ML IV ONE ×3 (04:55)
[2021-04-25] MEDS ORDERED: VANCOMYCIN HCL 2,020 MG in IV FLUID PLACE HOLDER 1 EA IV ONE (05:30)
[2021-04-25] MEDS ORDERED: CEFEPIME HCL 1 GM in D5W MINI-BAG PLUS 50 ML IV ONE (05:30)
[2021-04-25] MEDS ORDERED: MEROPENEM INJ 2 GM in NS 100 ML IV ONE (05:50)
[2021-04-25] MEDS ORDERED: VANCOMYCIN HCL 1,000 MG, VIAL MATE ADAPTER 1 EACH in NS 250 ML IV ONE ×2 (06:00→07:00)
[2021-04-25] MEDS ORDERED: HOME MED LIST COMPLETE! XX SCH (06:35)
[2021-04-25] MEDS: LevoFLOXacin IV 750 MG in IV 1 EA IV SCH (14:38)
[2021-04-25] MEDS: LR 1,000 ML IV SCH ×2 (16:43→23:18)
[2021-04-25 17:30] VITALS: BP 153/97
[2021-04-25 21:00] VITALS: BP 132/71
[2021-04-26 02:00] VITALS: BP 138/86
[2021-04-26] MEDS: LR 1,000 ML IV SCH ×2 (05:59→13:09)
[2021-04-26 06:00] VITALS: BP 127/84
[2021-04-26 08:29] LABS: HEMATOCRIT 41.8 % (42.0-52.0); HEMOGLOBIN 13.4 g/dl (13.5-17.5); MEAN CORPUSCULAR HEMOGLOBIN 28.2 pg (27.0-33.0); MEAN CORPUSCULAR HGB CONC 32.1 g/dl (32.0-36.5); MEAN CORPUSCULAR VOLUME 87.8 fl (80.0-96.0); PLATELET COUNT, AUTOMATED 331 10^3/uL (150-450); RED BLOOD COUNT 4.76 10^6/uL (4.30-6.10); WHITE BLOOD COUNT 9.8 10^3/uL (4.0-10.0)
[2021-04-26] MEDS ORDERED: ENOXAPARIN 40MG/0.4ML SYRINGE (J1650 PER 10MG) SC SCH (09:00)
[2021-04-26 09:04] LABS: ALBUMIN 3.2 GM/DL (3.2-5.2); ALT/SGPT 70 U/L (12-78); BILIRUBIN,TOTAL 0.9 MG/DL (0.2-1.0); BLOOD UREA NITROGEN 8 MG/DL (7-18); CARBON DIOXIDE LEVEL 26 MEQ/L (21-32); CHLORIDE LEVEL 106 MEQ/L (98-107); CREATININE FOR GFR 0.74 MG/DL (0.70-1.30); GLOMERULAR FILTRATION RATE > 60.0 (>60); GLUCOSE, FASTING 145 MG/DL (70-100); POTASSIUM SERUM 3.9 MEQ/L (3.5-5.1); SODIUM LEVEL 139 MEQ/L (136-145); TOTAL PROTEIN 7.4 GM/DL (6.4-8.2)
[2021-04-26 14:00] VITALS: BP 165/98
[2021-04-26] MEDS: LevoFLOXacin IV 750 MG in IV 1 EA IV SCH (14:00)
[2021-04-26] MEDS ORDERED: LEVO750T13 PO (15:56)
[2021-04-28 08:09] LABS: IgG SERUM (part of Subclasses) 1049 mg/dL (603-1613); IgG Subclass 1 631 mg/dL (248-810); IgG Subclass 2 125 mg/dL (130-555); IgG Subclass 3 > 231 mg/dL (15-102); IgG Subclass 4 1 mg/dL (2-96)
[2021-04-28 16:11] LABS: BODY FLUID CULTURE Not indicated. (.); LEGIONELLA ANTIGEN URINE Negative (Negative); ORGANISM ID Not indicated. (.); SPECIMEN SOURCE Urine (.); URINE STREP PNEUMONIAE ANTIGEN Negative (Negative)
== END 2021-04-26 17:05 | disposition home or self-care (01) | DRG 139 ==
LOC: M ED 03:49 → M ED INP 13:05 → ENRESERV 14:39 → M MSPAV 17:19
PROVIDERS: ADMIT Family Medicine; ATTEND Internal Medicine
DX: J18.9 Pneumonia, unspecified organism (principal); D83.9 Common variable immunodeficiency, unspecified; Z20.822 Contact with and (suspected) exposure to COVID-19; Z88.1 Allergy status to other antibiotic agents; Z88.8 Allergy status to other drugs, medicaments and biological substances; Z91.040 Latex allergy status

== ENCOUNTER → 2021-05-13 | Outpatient (CLI) | payer OTHER ==
[~2021-05-13] MED LIST changes: +LEVO750T13 PO
[2021-05-13 12:11] LABS: BASO % 0.4 % (0.0-1.0); EOS # 0.2 10^3/uL (0.0-0.5); EOS % 4.3 % (0.0-3.0); HEMATOCRIT 43.5 % (42.0-52.0); HEMOGLOBIN 14.4 g/dl (13.5-17.5); LYMPH # 1.8 10^3/uL (1.5-5.0); LYMPH % 37.9 % (24.0-44.0); MEAN CORPUSCULAR HGB CONC 33.1 g/dl (32.0-36.5); MEAN CORPUSCULAR VOLUME 87.7 fl (80.0-96.0); MONO # 0.6 10^3/uL (0.0-0.8); MONO % 12.9 % (2.0-8.0); NEUTROPHILS # 2.1 10^3/uL (1.5-8.5); NEUTROPHILS % 44.5 % (36.0-66.0); PLATELET COUNT, AUTOMATED 387 10^3/uL (150-450); RED BLOOD COUNT 4.96 10^6/uL (4.30-6.10); WHITE BLOOD COUNT 4.6 10^3/uL (4.0-10.0)
== END ==
LOC: M WUC 09:14
PROVIDERS: ATTEND Allergy & Immunology Allergy
DX: D80.3 Selective deficiency of immunoglobulin G [IgG] subclasses (principal)

== ENCOUNTER → 2021-12-28 | Outpatient (CLI) | payer OTHER ==
[~2021-12-28] MED LIST changes: +LEVO1TAB40 PO; -LEVO750T13 PO
== END ==
LOC: M RAD 16:02
PROVIDERS: ATTEND Nurse Practitioner Family
DX: R07.9 Chest pain, unspecified (principal)

== ENCOUNTER 2022-01-01 13:11 | Emergency (ER) | payer OTHER ==
[~2022-01-01] VITALS: Ht 170.2 cm; Wt 82.5 kg
[2022-01-01] MEDS ORDERED: METF10004 PO (13:26)
[2022-01-01 15:45] LABS: BASO % 0.6 % (0.0-1.0); EOS # 0.2 10^3/uL (0.0-0.5); EOS % 3.3 % (0.0-3.0); HEMATOCRIT 47.6 % (42.0-52.0); HEMOGLOBIN 15.7 g/dl (13.5-17.5); LYMPH # 1.9 10^3/uL (1.5-5.0); LYMPH % 37.5 % (24.0-44.0); MEAN CORPUSCULAR HEMOGLOBIN 28.1 pg (27.0-33.0); MEAN CORPUSCULAR VOLUME 85.3 fl (80.0-96.0); MONO # 0.6 10^3/uL (0.0-0.8); MONO % 10.7 % (2.0-8.0); NEUTROPHILS # 2.5 10^3/uL (1.5-8.5); NEUTROPHILS % 47.7 % (36.0-66.0); PLATELET COUNT, AUTOMATED 324 10^3/uL (150-450); RED BLOOD COUNT 5.58 10^6/uL (4.30-6.10); WHITE BLOOD COUNT 5.1 10^3/uL (4.0-10.0)
[2022-01-01 15:57] LABS: PARTIAL THROMBOPLASTIN TIME 31.3 SECONDS (24.8-34.2)
[2022-01-01 16:00] LABS: INR 0.91; PROTHROMBIN TIME 12.4 SECONDS (12.5-14.5)
[2022-01-01 16:12] LABS: ERYTHROCYTE SEDIMENTATION RATE 2 mm/hr (0-15)
[2022-01-01 16:15] LABS: CPK CREATINE PHOSPHOKINASE 112 U/L (39-308)
[2022-01-01 16:27] LABS: ALT/SGPT 51 U/L (12-78); BILIRUBIN,DIRECT 0.2 MG/DL (0.0-0.2); BLOOD UREA NITROGEN 10 MG/DL (7-18); C REACTIVE PROTEIN QUANTITATIV 0.66 MG/DL (0.00-0.30); CALCIUM LEVEL 9.3 MG/DL (8.5-10.1); CARBON DIOXIDE LEVEL 29 MEQ/L (21-32); CHLORIDE LEVEL 103 MEQ/L (98-107); CREATININE FOR GFR 0.74 MG/DL (0.70-1.30); GLOMERULAR FILTRATION RATE > 60.0 (>60); GLUCOSE, FASTING 138 MG/DL (70-100); LIPASE 78 U/L (73-393); NT-PRO BNP 30 PG/ML (<125); POTASSIUM SERUM 4.1 MEQ/L (3.5-5.1); SODIUM LEVEL 134 MEQ/L (136-145); TOTAL PROTEIN 8.3 GM/DL (6.4-8.2)
[2022-01-01 17:07] LABS: D-DIMER QUANT 357.31 ng/ml (<500)
[2022-01-01 18:56] LABS: CPK CREATINE PHOSPHOKINASE 159 U/L (39-308)
[2022-01-01 19:42] VITALS: BP 151/88
== END 2022-01-01 19:44 | disposition home or self-care (01) ==
LOC: EDBD 13:11 → M ED 13:11
DX: R07.89 Other chest pain (principal); E11.9 Type 2 diabetes mellitus without complications; J45.909 Unspecified asthma, uncomplicated; F90.9 Attention-deficit hyperactivity disorder, unspecified type; F32.9 Major depressive disorder, single episode, unspecified; F20.9 Schizophrenia, unspecified; D83.9 Common variable immunodeficiency, unspecified; F12.10 Cannabis abuse, uncomplicated; Z79.899 Other long term (current) drug therapy; Z79.84 Long term (current) use of oral hypoglycemic drugs; Z88.0 Allergy status to penicillin; Z88.1 Allergy status to other antibiotic agents; Z91.041 Radiographic dye allergy status

== ENCOUNTER → 2022-01-03 | Outpatient (CLI) | payer OTHER ==
[~2022-01-03] MED LIST changes: +METF10004 PO
[2022-01-03 13:52] LABS: CHOLESTEROL RISK RATIO 4.961 (<5); THYROID STIMULATING HORMONE 1.25 uIU/ML (0.358-3.740)
== END ==
LOC: M LAB 11:45
PROVIDERS: ATTEND Internal Medicine Cardiovascular Disease
DX: R07.9 Chest pain, unspecified (principal)

== ENCOUNTER → 2022-02-21 | Outpatient (REF) | payer OTHER ==
[2022-02-21 18:04] LABS: BASO % 0.6 % (0.0-1.0); EOS # 0.2 10^3/uL (0.0-0.5); EOS % 4.1 % (0.0-3.0); HEMATOCRIT 49.6 % (42.0-52.0); HEMOGLOBIN 16.1 g/dl (13.5-17.5); LYMPH # 2.2 10^3/uL (1.5-5.0); LYMPH % 46.1 % (24.0-44.0); MEAN CORPUSCULAR HEMOGLOBIN 27.8 pg (27.0-33.0); MEAN CORPUSCULAR HGB CONC 32.5 g/dl (32.0-36.5); MEAN CORPUSCULAR VOLUME 85.7 fl (80.0-96.0); MONO # 0.5 10^3/uL (0.0-0.8); MONO % 10.1 % (2.0-8.0); NEUTROPHILS # 1.9 10^3/uL (1.5-8.5); NEUTROPHILS % 38.9 % (36.0-66.0); PLATELET COUNT, AUTOMATED 363 10^3/uL (150-450); RED BLOOD COUNT 5.79 10^6/uL (4.30-6.10); WHITE BLOOD COUNT 4.8 10^3/uL (4.0-10.0)
[2022-02-21 18:17] LABS: ALKALINE PHOSPHATASE 112 U/L (46-116); ALT/SGPT 75 U/L (7.0-40); AST/SGOT 28 U/L (<34); BILIRUBIN,TOTAL 0.3 MG/DL (0.3-1.2); BLOOD UREA NITROGEN 15 MG/DL (9-23); CALCIUM LEVEL 9.8 MG/DL (8.5-10.1); CARBON DIOXIDE LEVEL 18 MMOL/L (20-31); CHLORIDE LEVEL 98 MMOL/L (98-107); CREATININE FOR GFR 0.73 MG/DL (0.70-1.30); GLOMERULAR FILTRATION RATE > 60.0 (>60); GLUCOSE, FASTING 285 MG/DL (60-100); POTASSIUM SERUM 4.3 MMOL/L (3.5-5.1); SODIUM LEVEL 133 MMOL/L (136-145); TOTAL PROTEIN 8.1 G/DL (5.7-8.2)
[2022-02-21 19:21] LABS: HEMOGLOBIN A1c 8.8 % (4.0-6.0)
== END ==
LOC: M LAB REF 16:34
PROVIDERS: ATTEND Nurse Practitioner Family
DX: Z13.228 Encounter for screening for other metabolic disorders (principal)

== ENCOUNTER 2022-03-06 10:11 | Emergency (ER) | payer OTHER ==
[~2022-03-06] VITALS: Ht 170.2 cm; Wt 81.3 kg
[2022-03-06] MEDS ORDERED: NS 1,000 ML IV ONE ×2 (12:50→15:00)
[2022-03-06] MEDS ORDERED: LevoFLOXacin 750 MG TABLET PO ONE (12:50)
[2022-03-06] MEDS ORDERED: ALBUTEROL SULFATE 2.5MG/0.5ML INH NEB SOLN NEB ONE (12:50)
[2022-03-06] MEDS ORDERED: ONDANSETRON 4MG 2ML VIAL IV ONE (12:50)
[2022-03-06] MEDS ORDERED: methylPREDNISolone 125MG 2ML VIAL IV ONE (12:50)
[2022-03-06] MEDS ORDERED: ACETAMINOPHEN 500 MG TAB PO ONE (12:50)
[2022-03-06 14:05] LABS: BASO % 0.2 % (0.0-1.0); EOS % 0.1 % (0.0-3.0); HEMATOCRIT 45.6 % (42.0-52.0); LYMPH # 0.8 10^3/uL (1.5-5.0); LYMPH % 7.2 % (24.0-44.0); MEAN CORPUSCULAR HEMOGLOBIN 27.8 pg (27.0-33.0); MEAN CORPUSCULAR HGB CONC 32.9 g/dl (32.0-36.5); MEAN CORPUSCULAR VOLUME 84.6 fl (80.0-96.0); MONO # 1.1 10^3/uL (0.0-0.8); MONO % 10.4 % (2.0-8.0); NEUTROPHILS % 81.8 % (36.0-66.0); PLATELET COUNT, AUTOMATED 317 10^3/uL (150-450); RED BLOOD COUNT 5.39 10^6/uL (4.30-6.10)
[2022-03-06 14:21] LABS: ALBUMIN 3.8 G/DL (3.2-5.2); ALKALINE PHOSPHATASE 93 U/L (46-116); ALT/SGPT 50 U/L (7.0-40); AST/SGOT 23 U/L (<34); BILIRUBIN,DIRECT 0.3 MG/DL (<0.4); BILIRUBIN,TOTAL 0.8 MG/DL (0.3-1.2); BLOOD UREA NITROGEN 9 MG/DL (9-23); CARBON DIOXIDE LEVEL 26 MMOL/L (20-31); CHLORIDE LEVEL 99 MMOL/L (98-107); CREATININE FOR GFR 0.83 MG/DL (0.70-1.30); GLOMERULAR FILTRATION RATE > 60.0 (>60); GLUCOSE, FASTING 189 MG/DL (60-100); POTASSIUM SERUM 4.2 MMOL/L (3.5-5.1); SODIUM LEVEL 134 MMOL/L (136-145)
[2022-03-06 14:24] LABS: THYROID STIMULATING HORMONE 0.301 uIU/ML (0.55-4.78); THYROXINE (T4) 5.7 UG/DL (4.5-10.9)
[2022-03-06 15:00] VITALS: BP 119/57
[2022-03-06] MEDS ORDERED: KETOROLAC 30 MG/ML 1ML VIAL IV ONE (15:00)
[2022-03-06 15:01] VITALS: O2SAT 95
[2022-03-06] MEDS ORDERED: LEVO1TAB40 PO (16:17)
[2022-03-06] MEDS ORDERED: PRED20TA PO (16:17)
[2022-03-06] MEDS ORDERED: OSEL75CA PO (16:17)
[2022-03-06] MEDS ORDERED: VENTAER INH (16:17)
== END 2022-03-06 16:36 | disposition home or self-care (01) ==
LOC: M ED 10:11
DX: J10.00 Influenza due to other identified influenza virus with unspecified type of pneumonia (principal); J45.901 Unspecified asthma with (acute) exacerbation; Z86.16 Personal history of COVID-19; D83.9 Common variable immunodeficiency, unspecified; F90.9 Attention-deficit hyperactivity disorder, unspecified type; F20.9 Schizophrenia, unspecified; Z79.899 Other long term (current) drug therapy; Z91.041 Radiographic dye allergy status; Z88.0 Allergy status to penicillin; Z88.1 Allergy status to other antibiotic agents
CPT/HCPCS: 71045; 80048; 80076; 83605; 84436; 84443; 85025; 87040; 87486; 87581; 87633; 87798; 93005; 93041; 94760; 96361; 96374; 96375; 99284; J1885; J2405; J2930

== ENCOUNTER → 2022-06-15 | Outpatient (REF) | payer OTHER ==
[~2022-06-15] MED LIST changes: +OSEL75CA PO; +PRED20TA PO; +VENTAER INH
[2022-06-15 12:38] LABS: APPEARANCE, URINE CLEAR (CLEAR); BACTERIA, URINE AUTO NEGATIVE (NEGATIVE); BILIRUBIN, URINE AUTO NEGATIVE (NEGATIVE); BLOOD, URINE BLOOD NEGATIVE (NEGATIVE); COLOR, URINE STRAW (YELLOW); GLUCOSE, URINE (UA) AUTO 3+ mg/dL (NEGATIVE); KETONE, URINE AUTO TRACE mg/dL (NEGATIVE); LEUKOCYTE ESTERASE, URINE AUTO NEGATIVE (NEGATIVE); NITRITE, URINE AUTO NEGATIVE (NEGATIVE); PROTEIN, URINE AUTO NEGATIVE (NEGATIVE); RBC, URINE AUTO 0 /HPF (0-3); SPECIFIC GRAVITY URINE AUTO 1.031 (1.002-1.035); SQUAMOUS EPITHELIAL CELL UR AU 0 /HPF (0-6); UROBILINOGEN, URINE AUTO 0.2 mg/dL (0.0-2.0); WBC, URINE AUTO 0 /HPF (0-3)
[2022-06-15 13:08] LABS: CREATININE, URINE 40.1 MG/DL; MAU/CREAT RATIO 7.4 MCG/MG (0.0-30.0)
[2022-06-15 19:09] LABS: BASO % 0.4 % (0.0-1.0); EOS # 0.1 10^3/uL (0.0-0.5); EOS % 1.9 % (0.0-3.0); HEMATOCRIT 47.7 % (42.0-52.0); HEMOGLOBIN 15.6 g/dl (13.5-17.5); LYMPH # 1.4 10^3/uL (1.5-5.0); LYMPH % 26.9 % (24.0-44.0); MEAN CORPUSCULAR HEMOGLOBIN 27.5 pg (27.0-33.0); MEAN CORPUSCULAR HGB CONC 32.7 g/dl (32.0-36.5); MEAN CORPUSCULAR VOLUME 84.1 fl (80.0-96.0); MONO # 0.5 10^3/uL (0.0-0.8); MONO % 10.2 % (2.0-8.0); NEUTROPHILS # 3.1 10^3/uL (1.5-8.5); NEUTROPHILS % 59.8 % (36.0-66.0); PLATELET COUNT, AUTOMATED 351 10^3/uL (150-450); RED BLOOD COUNT 5.67 10^6/uL (4.30-6.10); WHITE BLOOD COUNT 5.2 10^3/uL (4.0-10.0)
== END ==
LOC: M LAB REF 11:38
PROVIDERS: ATTEND Nurse Practitioner Family
DX: R39.9 Unspecified symptoms and signs involving the genitourinary system (principal); R04.2 Hemoptysis

== ENCOUNTER → 2022-06-21 | Outpatient (REF) | payer OTHER ==
[2022-06-21 19:17] LABS: ALBUMIN 3.8 G/DL (3.2-5.2); ALKALINE PHOSPHATASE 129 U/L (46-116); ALT/SGPT 44 U/L (7.0-40); AST/SGOT 17 U/L (<34); BILIRUBIN,TOTAL 0.8 MG/DL (0.3-1.2); BLOOD UREA NITROGEN 12 MG/DL (9-23); CALCIUM LEVEL 9.4 MG/DL (8.5-10.1); CARBON DIOXIDE LEVEL 25 MMOL/L (20-31); CHLORIDE LEVEL 100 MMOL/L (98-107); CHOLESTEROL LEVEL 133 MG/DL (<200); CHOLESTEROL RISK RATIO 5.73 (<5); CREATININE FOR GFR 0.62 MG/DL (0.70-1.30); GLOMERULAR FILTRATION RATE > 60.0 (>60); GLUCOSE, FASTING 304 MG/DL (60-100); HDL CHOLESTEROL 23.2 MG/DL (>40); LDL CHOLESTEROL 83.8 MG/DL (<100); NON-HDL-C 109.8 MG/DL; POTASSIUM SERUM 4.7 MMOL/L (3.5-5.1); SODIUM LEVEL 135 MMOL/L (136-145); TOTAL PROTEIN 7.4 G/DL (5.7-8.2); TRIGLYCERIDES LEVEL 130 MG/DL (<150)
[2022-06-21 19:40] LABS: HEMOGLOBIN A1c 12.5 % (4.0-6.0)
== END ==
LOC: M LAB REF 16:42
PROVIDERS: ATTEND Nurse Practitioner Family
DX: E11.9 Type 2 diabetes mellitus without complications (principal); Z13.228 Encounter for screening for other metabolic disorders

== ENCOUNTER → 2022-06-28 | Outpatient (CLI) | payer OTHER | LOC: M RAD 18:43 | PROVIDERS: ATTEND Nurse Practitioner Family | DX: R04.2 Hemoptysis (principal) ==

== ENCOUNTER 2022-07-21 22:08 | Emergency (ER) | payer OTHER ==
[2022-07-21 23:06] LABS: HEMATOCRIT 42.6 % (42.0-52.0); HEMOGLOBIN 13.9 g/dl (13.5-17.5); MEAN CORPUSCULAR HEMOGLOBIN 27.4 pg (27.0-33.0); MEAN CORPUSCULAR HGB CONC 32.6 g/dl (32.0-36.5); PLATELET COUNT, AUTOMATED 395 10^3/uL (150-450); RED BLOOD COUNT 5.07 10^6/uL (4.30-6.10); WHITE BLOOD COUNT 9.9 10^3/uL (4.0-10.0)
[2022-07-21 23:29] LABS: AMPHETAMINES LEVEL URINE NEGATIVE (NEGATIVE); BARBITURATES URINE NEGATIVE (NEGATIVE); BENZODIAZEPINES URINE NEGATIVE (NEGATIVE); CANNABINOIDS URINE NEGATIVE (NEGATIVE); COCAINE METABOLITE URINE NEGATIVE (NEGATIVE); METHADONE URINE NEGATIVE (NEGATIVE); OPIATES URINE NEGATIVE (NEGATIVE); PHENCYCLIDINE URINE NEGATIVE (NEGATIVE)
[2022-07-21 23:31] LABS: ETHYL ALCOHOL (ETHANOL) < 0.003 % (0.000-0.010)
[2022-07-21 23:32] LABS: SALICYLATE LEVEL < 3.0 MG/DL (<30)
[2022-07-21 23:33] LABS: ACETAMINOPHEN LEVEL < 2.0 UG/ML (10.0-20.0); ALBUMIN 4.2 G/DL (3.2-5.2); ALKALINE PHOSPHATASE 128 U/L (46-116); ALT/SGPT 38 U/L (7.0-40); AST/SGOT 21 U/L (<34); BILIRUBIN,DIRECT 0.5 MG/DL (<0.4); BILIRUBIN,TOTAL 1.3 MG/DL (0.3-1.2); BLOOD UREA NITROGEN 9 MG/DL (9-23); CALCIUM LEVEL 8.9 MG/DL (8.5-10.1); CARBON DIOXIDE LEVEL 26 MMOL/L (20-31); CHLORIDE LEVEL 101 MMOL/L (98-107); CREATININE FOR GFR 0.75 MG/DL (0.70-1.30); GLOMERULAR FILTRATION RATE > 60.0 (>60); GLUCOSE, FASTING 131 MG/DL (60-100); POTASSIUM SERUM 3.6 MMOL/L (3.5-5.1); SODIUM LEVEL 135 MMOL/L (136-145); TOTAL PROTEIN 7.9 G/DL (5.7-8.2)
[2022-07-21 23:35] LABS: THYROID STIMULATING HORMONE 1.492 uIU/ML (0.55-4.78)
[2022-07-22] MEDS ORDERED: OMEP-173 PO (02:52)
[2022-07-22] MEDS ORDERED: CETI-24 PO (02:52)
[2022-07-22] MEDS ORDERED: HOME MED LIST COMPLETE! XX SCH (02:55)
[2022-07-22 04:00] VITALS: BP 145/82
== END 2022-07-22 04:00 | disposition home or self-care (01) ==
LOC: M ED 22:08
DX: F43.9 Reaction to severe stress, unspecified (principal); F90.9 Attention-deficit hyperactivity disorder, unspecified type; F41.9 Anxiety disorder, unspecified; Z91.041 Radiographic dye allergy status; Z88.1 Allergy status to other antibiotic agents; Z79.51 Long term (current) use of inhaled steroids; Z79.84 Long term (current) use of oral hypoglycemic drugs; Z79.899 Other long term (current) drug therapy

== ENCOUNTER → 2022-07-31 | Outpatient (CLI) | payer OTHER ==
[~2022-07-31] MED LIST changes: +CETI-24 PO; +OMEP-173 PO
[2022-07-31 10:13] LABS: BASO % 0.6 % (0.0-1.0); EOS # 0.2 10^3/uL (0.0-0.5); EOS % 3.7 % (0.0-3.0); HEMATOCRIT 35.4 % (42.0-52.0); HEMOGLOBIN 11.1 g/dl (13.5-17.5); LYMPH # 1.5 10^3/uL (1.5-5.0); LYMPH % 28.6 % (24.0-44.0); MEAN CORPUSCULAR HEMOGLOBIN 27.3 pg (27.0-33.0); MEAN CORPUSCULAR HGB CONC 31.4 g/dl (32.0-36.5); MEAN CORPUSCULAR VOLUME 87.2 fl (80.0-96.0); MONO # 0.5 10^3/uL (0.0-0.8); MONO % 8.4 % (2.0-8.0); NEUTROPHILS # 3.1 10^3/uL (1.5-8.5); NEUTROPHILS % 58.3 % (36.0-66.0); PLATELET COUNT, AUTOMATED 648 10^3/uL (150-450); RED BLOOD COUNT 4.06 10^6/uL (4.30-6.10); WHITE BLOOD COUNT 5.4 10^3/uL (4.0-10.0)
[2022-07-31 10:47] LABS: IMMUNOGLOBULIN G 1136 MG/DL (650-1600); IMMUNOGLOBULIN M 91.7 MG/DL (50-300)
[2022-07-31 10:59] LABS: IMMUNOGLOBULIN A > 540.0 MG/DL (40-350)
[2022-08-01 13:09] LABS: %CD 4 POS LYMPH 47.3 % (30.8-58.5); ABS CD8 SUPPRESSOR 224 /uL (109-897); ABSOLUTE CD 3 1052 /uL (622-2402); ABSOLUTE CD 4 HELPER 804 /uL (359-1519); BASOS 1 % (Not Estab.)
== END ==
LOC: M LAB 09:09
PROVIDERS: ATTEND Pediatrics Pediatric Emergency Medicine
DX: D84.9 Immunodeficiency, unspecified (principal)

== ENCOUNTER → 2022-08-29 | Outpatient (CLI) | payer OTHER ==
[2022-08-29 17:34] LABS: BASO % 0.7 % (0.0-1.0); EOS # 0.1 10^3/uL (0.0-0.5); EOS % 2.8 % (0.0-3.0); HEMATOCRIT 47.9 % (42.0-52.0); HEMOGLOBIN 14.9 g/dl (13.5-17.5); LYMPH # 1.5 10^3/uL (1.5-5.0); LYMPH % 34.3 % (24.0-44.0); MEAN CORPUSCULAR HEMOGLOBIN 27.2 pg (27.0-33.0); MEAN CORPUSCULAR HGB CONC 31.1 g/dl (32.0-36.5); MEAN CORPUSCULAR VOLUME 87.6 fl (80.0-96.0); MONO # 0.5 10^3/uL (0.0-0.8); MONO % 12.5 % (2.0-8.0); NEUTROPHILS # 2.1 10^3/uL (1.5-8.5); NEUTROPHILS % 49.5 % (36.0-66.0); PLATELET COUNT, AUTOMATED 417 10^3/uL (150-450); RED BLOOD COUNT 5.47 10^6/uL (4.30-6.10); WHITE BLOOD COUNT 4.3 10^3/uL (4.0-10.0)
== END ==
LOC: M LAB 16:13
PROVIDERS: ATTEND Nurse Practitioner Family
DX: R07.9 Chest pain, unspecified (principal)

== ENCOUNTER 2022-08-31 09:41 | Emergency (ER) | payer OTHER ==
[~2022-08-31] VITALS: Ht 170.2 cm; Wt 74.1 kg
[2022-08-31 10:13] LABS: BASO % 0.5 % (0.0-1.0); EOS # 0.1 10^3/uL (0.0-0.5); EOS % 3.5 % (0.0-3.0); HEMATOCRIT 46.4 % (42.0-52.0); LYMPH # 1.5 10^3/uL (1.5-5.0); LYMPH % 37.6 % (24.0-44.0); MEAN CORPUSCULAR HEMOGLOBIN 27.6 pg (27.0-33.0); MEAN CORPUSCULAR HGB CONC 32.3 g/dl (32.0-36.5); MEAN CORPUSCULAR VOLUME 85.5 fl (80.0-96.0); MONO # 0.6 10^3/uL (0.0-0.8); MONO % 15.8 % (2.0-8.0); NEUTROPHILS # 1.7 10^3/uL (1.5-8.5); NEUTROPHILS % 42.6 % (36.0-66.0); PLATELET COUNT, AUTOMATED 392 10^3/uL (150-450); RED BLOOD COUNT 5.43 10^6/uL (4.30-6.10)
[2022-08-31] MEDS ORDERED: KETOROLAC 30 MG/ML 1ML VIAL IV ONE (10:35)
[2022-08-31 10:36] LABS: LIPASE 30 U/L (12-53)
[2022-08-31 10:39] LABS: ALKALINE PHOSPHATASE 108 U/L (46-116); ALT/SGPT 62 U/L (7.0-40); AST/SGOT 26 U/L (<34); BILIRUBIN,DIRECT 0.1 MG/DL (<0.4); BILIRUBIN,TOTAL 0.4 MG/DL (0.3-1.2); BLOOD UREA NITROGEN 14 MG/DL (9-23); CALCIUM LEVEL 10.3 MG/DL (8.5-10.1); CARBON DIOXIDE LEVEL 25 MMOL/L (20-31); CHLORIDE LEVEL 105 MMOL/L (98-107); CK-MB VALUE MASS < 1.0 NG/ML (<3.6); CREATININE FOR GFR 0.75 MG/DL (0.70-1.30); GLOMERULAR FILTRATION RATE > 60.0 (>60); GLUCOSE, FASTING 107 MG/DL (60-100); POTASSIUM SERUM 4.3 MMOL/L (3.5-5.1); SODIUM LEVEL 135 MMOL/L (136-145); TOTAL PROTEIN 7.9 G/DL (5.7-8.2)
[2022-08-31 10:41] LABS: FREE T4 1.07 NG/DL (0.89-1.76)
[2022-08-31 10:42] LABS: CPK CREATINE PHOSPHOKINASE 131 U/L (46-171); MB/CK RELATIVE INDEX 0.76 (< OR =4)
[2022-08-31 11:57] LABS: CK-MB VALUE MASS < 1.0 NG/ML (<3.6)
[2022-08-31 12:00] LABS: CPK CREATINE PHOSPHOKINASE 120 U/L (46-171); MB/CK RELATIVE INDEX 0.83 (< OR =4)
[2022-08-31 17:10] VITALS: BP 128/76; TEMP 97.8; O2SAT 99
== END 2022-08-31 17:13 | disposition home or self-care (01) ==
LOC: M ED 09:41
DX: R20.2 Paresthesia of skin (principal); R07.89 Other chest pain; E11.9 Type 2 diabetes mellitus without complications; J45.909 Unspecified asthma, uncomplicated; Z91.041 Radiographic dye allergy status; Z88.0 Allergy status to penicillin; Z79.51 Long term (current) use of inhaled steroids; Z79.84 Long term (current) use of oral hypoglycemic drugs; Z79.899 Other long term (current) drug therapy
CPT/HCPCS: 70450; 70544; 70551; 71045; 72141; 80048; 80076; 82550; 82553; 83690; 84439; 84443; 85025; 93005; 93041; 94760; 96374; 99285; J1885

== ENCOUNTER → 2022-10-20 | Outpatient (CLI) | payer OTHER ==
[2022-10-20 18:31] LABS: BASO % 0.4 % (0.0-1.0); EOS # 0.1 10^3/uL (0.0-0.5); EOS % 2.7 % (0.0-3.0); HEMATOCRIT 45.6 % (42.0-52.0); HEMOGLOBIN 15.3 g/dl (13.5-17.5); LYMPH # 1.4 10^3/uL (1.5-5.0); LYMPH % 28.2 % (24.0-44.0); MEAN CORPUSCULAR HEMOGLOBIN 27.9 pg (27.0-33.0); MEAN CORPUSCULAR HGB CONC 33.6 g/dl (32.0-36.5); MEAN CORPUSCULAR VOLUME 83.1 fl (80.0-96.0); MONO # 0.5 10^3/uL (0.0-0.8); NEUTROPHILS # 2.8 10^3/uL (1.5-8.5); NEUTROPHILS % 57.5 % (36.0-66.0); PLATELET COUNT, AUTOMATED 336 10^3/uL (150-450); RED BLOOD COUNT 5.49 10^6/uL (4.30-6.10); WHITE BLOOD COUNT 4.9 10^3/uL (4.0-10.0)
[2022-10-20 19:10] LABS: ALBUMIN 4.1 G/DL (3.2-5.2); ALKALINE PHOSPHATASE 111 U/L (46-116); ALT/SGPT 93 U/L (7.0-40); AST/SGOT 27 U/L (<34); BILIRUBIN,TOTAL 0.5 MG/DL (0.3-1.2); BLOOD UREA NITROGEN 11 MG/DL (9-23); CALCIUM LEVEL 9.4 MG/DL (8.5-10.1); CARBON DIOXIDE LEVEL 25 MMOL/L (20-31); CHLORIDE LEVEL 104 MMOL/L (98-107); CREATININE FOR GFR 0.69 MG/DL (0.70-1.30); GLOMERULAR FILTRATION RATE > 60.0 (>60); GLUCOSE, FASTING 192 MG/DL (60-100); SODIUM LEVEL 140 MMOL/L (136-145); TOTAL PROTEIN 7.6 G/DL (5.7-8.2)
[2022-10-20 19:13] LABS: THYROID STIMULATING HORMONE 1.546 uIU/ML (0.55-4.78)
[2022-10-20 19:14] LABS: VITAMIN B12 LEVEL 577 PG/ML (211-911)
[2022-10-20 19:20] LABS: RHEUMATOID FACTOR QUANT < 3.5 IU/ML (<14)
[2022-10-20 20:05] LABS: HEMOGLOBIN A1c 5.4 % (4.0-6.0)
[2022-10-20 20:31] LABS: ERYTHROCYTE SEDIMENTATION RATE 25 mm/hr (0-15)
== END ==
LOC: M LAB 17:17
PROVIDERS: ATTEND Psychiatry & Neurology Neurology
DX: G62.9 Polyneuropathy, unspecified (principal)

== ENCOUNTER → 2022-12-04 | Outpatient (REF) | payer OTHER | LOC: M LAB REF 16:21 | PROVIDERS: ATTEND Physician Assistant Medical | DX: J02.9 Acute pharyngitis, unspecified (principal) ==

== ENCOUNTER → 2023-03-22 | Outpatient (CLI) | payer OTHER | LOC: M RAD 14:40 | PROVIDERS: ATTEND Orthopaedic Surgery | DX: M54.12 Radiculopathy, cervical region (principal); M25.511 Pain in right shoulder ==

== ENCOUNTER → 2023-07-26 | Outpatient (REF) | payer OTHER ==
[~2023-07-26] MED LIST changes: +ONDA-282 PO; -ONDA4TAB6 PO
== END ==
LOC: M LAB REF 16:19
PROVIDERS: ATTEND Nurse Practitioner Family
DX: J02.9 Acute pharyngitis, unspecified (principal)

== ENCOUNTER → 2023-08-30 | Outpatient (REF) | payer OTHER ==
[2023-08-30 19:15] LABS: BASO % 0.4 % (0.0-1.0); EOS # 0.1 10^3/uL (0.0-0.5); EOS % 2.7 % (0.0-3.0); HEMATOCRIT 47.8 % (42.0-52.0); HEMOGLOBIN 15.9 g/dl (13.5-17.5); LYMPH # 1.7 10^3/uL (1.5-5.0); LYMPH % 34.4 % (24.0-44.0); MEAN CORPUSCULAR HEMOGLOBIN 27.7 pg (27.0-33.0); MEAN CORPUSCULAR HGB CONC 33.3 g/dl (32.0-36.5); MEAN CORPUSCULAR VOLUME 83.4 fl (80.0-96.0); MONO # 0.4 10^3/uL (0.0-0.8); MONO % 9.1 % (2.0-8.0); NEUTROPHILS # 2.6 10^3/uL (1.5-8.5); NEUTROPHILS % 53.2 % (36.0-66.0); PLATELET COUNT, AUTOMATED 349 10^3/uL (150-450); RED BLOOD COUNT 5.73 10^6/uL (4.30-6.10); WHITE BLOOD COUNT 4.8 10^3/uL (4.0-10.0)
[2023-08-30 19:23] LABS: THYROID STIMULATING HORMONE 1.428 uIU/ML (0.55-4.78); TOTAL 25(OH) VITAMIN D 15.5 NG/ML (20.0-100.0)
[2023-08-30 19:32] LABS: HEMOGLOBIN A1c 12.6 % (4.0-6.0)
[2023-08-30 19:46] LABS: ALKALINE PHOSPHATASE 192 U/L (46-116); ALT/SGPT 57 U/L (7.0-40); AST/SGOT 19 U/L (<34); BILIRUBIN,TOTAL 0.5 MG/DL (0.3-1.2); BLOOD UREA NITROGEN 8 MG/DL (9-23); CARBON DIOXIDE LEVEL 25 MMOL/L (20-31); CHLORIDE LEVEL 99 MMOL/L (98-107); CHOLESTEROL LEVEL 159 MG/DL (<200); CHOLESTEROL RISK RATIO 5.82 (<5); CREATININE FOR GFR 0.63 MG/DL (0.70-1.30); GLOMERULAR FILTRATION RATE > 60.0 (>60); GLUCOSE, FASTING 424 MG/DL (60-100); HDL CHOLESTEROL 27.3 MG/DL (>40); LDL CHOLESTEROL 99.7 MG/DL (<100); MAGNESIUM LEVEL 1.9 MG/DL (1.8-2.4); NON-HDL-C 131.7 MG/DL; POTASSIUM SERUM 4.9 MMOL/L (3.5-5.1); SODIUM LEVEL 133 MMOL/L (136-145); TRIGLYCERIDES LEVEL 160 MG/DL (<150)
== END ==
LOC: M LAB REF 16:39
PROVIDERS: ATTEND Nurse Practitioner Family
DX: E55.9 Vitamin D deficiency, unspecified (principal); E66.3 Overweight

== ENCOUNTER → 2023-10-08 | Outpatient (REF) | payer OTHER | LOC: M LAB REF 17:46 | PROVIDERS: ATTEND Surgery | DX: D23.5 Other benign neoplasm of skin of trunk (principal) ==

== ENCOUNTER → 2023-10-30 | Outpatient (CLI) | payer OTHER ==
[2023-10-30 17:22] LABS: IMMUNOGLOBULIN G 1284 MG/DL (650-1600)
[2023-10-30 17:46] LABS: IMMUNOGLOBULIN A > 540.0 MG/DL (40-350); IMMUNOGLOBULIN E 4.2 IU/ML (0-378)
[2023-11-01 15:31] LABS: TISSUE TRANSGLUTAMINASE IgA < 1.0 U/mL (<15.0)
[2023-11-05 17:18] LABS: ANTI TETANUS ANTIBODY 0.53 IU/mL (>=0.10)
== END ==
LOC: M LAB 15:26
PROVIDERS: ATTEND Allergy & Immunology Allergy
DX: R89.4 Abnormal immunological findings in specimens from other organs, systems and tissues (principal)

== ENCOUNTER 2023-12-10 17:06 | Emergency (ER) | payer OTHER ==
[~2023-12-10] VITALS: Ht 170.2 cm; Wt 87.3 kg
[2023-12-10] MEDS ORDERED: BLOO-217 (17:37)
[2023-12-10] MEDS ORDERED: VITA200032 (17:37)
[2023-12-10] MEDS ORDERED: ERGO500029 (17:37)
[2023-12-10] MEDS ORDERED: BLOO-218 (17:37)
[2023-12-10] MEDS ORDERED: FARX1TAB5 (17:37)
[2023-12-10] MEDS ORDERED: VALA-3 PO (17:43)
[2023-12-10] MEDS ORDERED: KETO2CR TOP (17:43)
[2023-12-10] MEDS ORDERED: ONETTES6 (17:43)
[2023-12-10] MEDS ORDERED: METF-838 (17:43)
[2023-12-10] MEDS ORDERED: KETO2SHA8 TOP (17:43)
[2023-12-10] MEDS ORDERED: TRUL0.5I PO (17:43)
[2023-12-10] MEDS ORDERED: TRUL10IN (17:43)
[2023-12-10] MEDS ORDERED: LANC-66 (17:43)
[2023-12-10] MEDS ORDERED: SYMB80INH INH (17:43)
[2023-12-10] MEDS ORDERED: RISP0.253 PO (17:43)
[2023-12-10] MEDS ORDERED: FLUT15.820 NARES (17:43)
[2023-12-10 18:04] LABS: BASO % 0.5 % (0.0-1.0); EOS # 0.1 10^3/uL (0.0-0.5); EOS % 2.9 % (0.0-3.0); HEMATOCRIT 41.6 % (42.0-52.0); HEMOGLOBIN 14.1 g/dl (13.5-17.5); LYMPH # 1.7 10^3/uL (1.5-5.0); MEAN CORPUSCULAR HEMOGLOBIN 28.4 pg (27.0-33.0); MEAN CORPUSCULAR HGB CONC 33.9 g/dl (32.0-36.5); MEAN CORPUSCULAR VOLUME 83.9 fl (80.0-96.0); MONO # 0.6 10^3/uL (0.0-0.8); MONO % 13.3 % (2.0-8.0); NEUTROPHILS # 1.8 10^3/uL (1.5-8.5); NEUTROPHILS % 43.1 % (36.0-66.0); PLATELET COUNT, AUTOMATED 351 10^3/uL (150-450); RED BLOOD COUNT 4.96 10^6/uL (4.30-6.10); WHITE BLOOD COUNT 4.2 10^3/uL (4.0-10.0)
[2023-12-10] MEDS ORDERED: METF-838 PO (18:16)
[2023-12-10 18:18] LABS: INR 1.06; PROTHROMBIN TIME 13.5 SECONDS (12.5-14.5)
[2023-12-10 18:23] LABS: LIPASE 39 U/L (12-53)
[2023-12-10 18:25] LABS: ALBUMIN 3.9 G/DL (3.2-5.2); ALKALINE PHOSPHATASE 96 U/L (46-116); ALT/SGPT 47 U/L (7.0-40); AST/SGOT 14 U/L (<34); BILIRUBIN,DIRECT 0.2 MG/DL (<0.4); BILIRUBIN,TOTAL 0.6 MG/DL (0.3-1.2); CK-MB VALUE MASS < 1.0 NG/ML (<3.6); CPK CREATINE PHOSPHOKINASE 105 U/L (46-171); MB/CK RELATIVE INDEX 0.95 (< OR =4); TOTAL PROTEIN 7.9 G/DL (5.7-8.2)
[2023-12-10 18:27] LABS: FREE T4 1.16 NG/DL (0.89-1.76); THYROID STIMULATING HORMONE 2.212 uIU/ML (0.55-4.78)
[2023-12-10] MEDS: NS 500 ML IV ONE (18:28)
[2023-12-10] MEDS ORDERED: ERGO500029 PO (18:44)
[2023-12-10] MEDS ORDERED: ALBU8.5H INH (18:45)
[2023-12-10] MEDS ORDERED: HOME MED LIST COMPLETE! XX SCH (18:45)
[2023-12-10 19:59] LABS: CK-MB VALUE MASS < 1.0 NG/ML (<3.6)
[2023-12-10 20:02] LABS: CPK CREATINE PHOSPHOKINASE 87 U/L (46-171); MB/CK RELATIVE INDEX 1.14 (< OR =4)
[2023-12-10 20:30] VITALS: BP 136/76; TEMP 96.7; O2SAT 100
== END 2023-12-10 20:37 | disposition home or self-care (01) ==
LOC: EDBD 17:06 → M ED 17:06
DX: R07.89 Other chest pain (principal); E11.9 Type 2 diabetes mellitus without complications; K21.9 Gastro-esophageal reflux disease without esophagitis; F20.9 Schizophrenia, unspecified; F41.9 Anxiety disorder, unspecified; F32.A Depression, unspecified; Z88.1 Allergy status to other antibiotic agents; Z88.8 Allergy status to other drugs, medicaments and biological substances; Z91.041 Radiographic dye allergy status; Z79.51 Long term (current) use of inhaled steroids; Z79.84 Long term (current) use of oral hypoglycemic drugs; Z79.899 Other long term (current) drug therapy

== ENCOUNTER → 2024-01-10 | Outpatient (REF) | payer OTHER ==
[~2024-01-10] MED LIST changes: +ALBU8.5H INH; +BLOO-217; +BLOO-218; +ERGO500029; +ERGO500029 PO; +FARX1TAB5; +FLUT15.820 NARES; +KETO2CR TOP; +KETO2SHA8 TOP; +LANC-66; +METF-838; +METF-838 PO; +ONETTES6; +RISP0.253 PO; +SYMB80INH INH; +TRUL0.5I PO; +TRUL10IN; +VALA-3 PO; +VITA200032
[2024-01-10 14:42] LABS: ALBUMIN 3.8 G/DL (3.2-5.2); ALKALINE PHOSPHATASE 135 U/L (46-116); ALT/SGPT 58 U/L (7.0-40); AST/SGOT 12 U/L (<34); BILIRUBIN,TOTAL 0.4 MG/DL (0.3-1.2); BLOOD UREA NITROGEN 15 MG/DL (9-23); CALCIUM LEVEL 9.9 MG/DL (8.5-10.1); CARBON DIOXIDE LEVEL 23 MMOL/L (20-31); CHLORIDE LEVEL 104 MMOL/L (98-107); CHOLESTEROL LEVEL 134 MG/DL (<200); CHOLESTEROL RISK RATIO 5.85 (<5); GLOMERULAR FILTRATION RATE > 60.0 (>60); GLUCOSE, FASTING 409 MG/DL (60-100); HDL CHOLESTEROL 22.9 MG/DL (>40); LDL CHOLESTEROL 84.1 MG/DL (<100); NON-HDL-C 111.1 MG/DL; POTASSIUM SERUM 4.2 MMOL/L (3.5-5.1); SODIUM LEVEL 133 MMOL/L (136-145); TOTAL PROTEIN 7.6 G/DL (5.7-8.2); TRIGLYCERIDES LEVEL 135 MG/DL (<150)
[2024-01-10 15:07] LABS: HEMOGLOBIN A1c 7.8 % (4.0-6.0)
== END ==
LOC: M LAB REF 14:01
PROVIDERS: ATTEND Nurse Practitioner Family
DX: E11.9 Type 2 diabetes mellitus without complications (principal); R79.89 Other specified abnormal findings of blood chemistry

== ENCOUNTER → 2024-03-03 | Outpatient (REF) | payer OTHER | LOC: M LAB REF 16:06 | PROVIDERS: ATTEND Physician Assistant Medical | DX: B34.9 Viral infection, unspecified (principal) ==

== ENCOUNTER → 2024-04-30 | Outpatient (REF) | payer OTHER ==
[~2024-04-30] MED LIST changes: +DULA3PEN; +FARX1TAB5 PO; +VITA200032 PO
== END ==
LOC: M LAB REF 20:18
PROVIDERS: ATTEND Physician Assistant
DX: B34.9 Viral infection, unspecified (principal)

== ENCOUNTER → 2024-05-19 | Outpatient (CLI) | payer OTHER ==
[2024-05-19 16:32] LABS: BASO % 0.4 % (0.0-1.0); EOS # 0.1 10^3/uL (0.0-0.5); EOS % 2.1 % (0.0-3.0); HEMATOCRIT 46.8 % (42.0-52.0); HEMOGLOBIN 15.7 g/dl (13.5-17.5); LYMPH % 37.5 % (24.0-44.0); MEAN CORPUSCULAR HEMOGLOBIN 28.3 pg (27.0-33.0); MEAN CORPUSCULAR HGB CONC 33.5 g/dl (32.0-36.5); MEAN CORPUSCULAR VOLUME 84.3 fl (80.0-96.0); MONO # 0.4 10^3/uL (0.0-0.8); MONO % 8.1 % (2.0-8.0); NEUTROPHILS # 2.8 10^3/uL (1.5-8.5); NEUTROPHILS % 51.9 % (36.0-66.0); PLATELET COUNT, AUTOMATED 348 10^3/uL (150-450); RED BLOOD COUNT 5.55 10^6/uL (4.30-6.10); WHITE BLOOD COUNT 5.3 10^3/uL (4.0-10.0)
[2024-05-19 16:54] LABS: ALKALINE PHOSPHATASE 123 U/L (40-129); ALT/SGPT 45 U/L (7.0-40); AST/SGOT 16 U/L (<34); BILIRUBIN,TOTAL 0.5 MG/DL (0.3-1.2); BLOOD UREA NITROGEN 9 MG/DL (9-23); CALCIUM LEVEL 9.8 MG/DL (8.5-10.1); CARBON DIOXIDE LEVEL 26 MMOL/L (20-31); CHLORIDE LEVEL 99 MMOL/L (98-107); CREATININE FOR GFR 0.61 MG/DL (0.70-1.30); GLOMERULAR FILTRATION RATE > 60.0 (>60); GLUCOSE, FASTING 309 MG/DL (60-100); POTASSIUM SERUM 4.1 MMOL/L (3.5-5.1); SODIUM LEVEL 133 MMOL/L (136-145); TOTAL PROTEIN 7.9 G/DL (5.7-8.2)
[2024-05-19 19:04] LABS: CREATININE, URINE 58.9 MG/DL
[2024-05-19 19:05] LABS: MAU/CREAT RATIO 13.5 MCG/MG (0.0-30.0)
== END ==
LOC: M LAB 15:44
PROVIDERS: ATTEND Nurse Practitioner Family
DX: Z01.818 Encounter for other preprocedural examination (principal); E11.9 Type 2 diabetes mellitus without complications

== ENCOUNTER 2024-06-05 09:51 | Day surgery (SDC) | payer OTHER ==
[~2024-06-05] VITALS: Ht 167.6 cm; Wt 82.1 kg
[~2024-06-05 09:51] MED LIST changes: -DULA3PEN; +DULA3PEN SC; +LIDOCAINE 2% 100MG/5ML SDV (FOR ANES.) As Ordered ONE; +MIDAZOLAM INJ 2MG/2ML VIAL As Ordered ONE; +ROCURONIUM BROMIDE 50MG/5ML VIAL As Ordered ONE; +fentaNYL 250 MCG/5 ML INJECTION As Ordered ONE; +propofoL 200 MG/20 ML VIAL As Ordered ONE
[2024-06-05] MEDS ORDERED: DEXTROSE 50% 50ML SYRINGE IV PRN (11:10)
[2024-06-05] MEDS ORDERED: GLUCOSE 4 GM CHEW PO PRN (11:10)
[2024-06-05] MEDS ORDERED: GLUCAGON INJ 1MG VIAL SC PRN (11:10)
[2024-06-05] MEDS: LR 1,000 ML IV SCH (11:22)
[2024-06-05] MEDS: INSULIN LISPRO (NovoLOG) PER UNIT SC PRN ×2 (11:22→12:13)
[2024-06-05] MEDS ORDERED: ACETAMINOPHEN 1000MG/100ML IV BAG As Ordered ONE (12:52)
[2024-06-05] MEDS ORDERED: ONDANSETRON 4MG 2ML VIAL As Ordered ONE (12:53)
[2024-06-05] MEDS ORDERED: ESMOLOL INJ 100MG/10ML VIAL As Ordered ONE (13:15)
[2024-06-05] MEDS ORDERED: fentaNYL 100 MCG/2 ML INJECTION IV PRN (13:20)
[2024-06-05] MEDS ORDERED: oxyCODONE 5MG TAB PO PRN (13:20)
[2024-06-05] MEDS ORDERED: SUGAMMADEX SODIUM 500 MG/5 ML VIAL (BRIDION) As Ordered ONE (13:21)
[2024-06-05 15:23] VITALS: BP 138/77; TEMP 97.7; O2SAT 98
== END 2024-06-05 15:28 | disposition home or self-care (01) ==
LOC: M SDC 09:51
PROVIDERS: ATTEND Otolaryngology
DX: J35.01 Chronic tonsillitis (principal); E11.9 Type 2 diabetes mellitus without complications; R06.83 Snoring; Z88.0 Allergy status to penicillin; Z88.1 Allergy status to other antibiotic agents; Z91.041 Radiographic dye allergy status; Z79.899 Other long term (current) drug therapy
CPT/HCPCS: 42821; 88302; J0131; J1100; J1805; J2250; J2405; J3010

== ENCOUNTER 2024-06-13 17:58 | Emergency (ER) | payer OTHER ==
[~2024-06-13] VITALS: Ht 167.6 cm; Wt 81.6 kg
[~2024-06-13 17:58] MED LIST changes: -LIDOCAINE 2% 100MG/5ML SDV (FOR ANES.) As Ordered ONE; -MIDAZOLAM INJ 2MG/2ML VIAL As Ordered ONE; -ROCURONIUM BROMIDE 50MG/5ML VIAL As Ordered ONE; -fentaNYL 250 MCG/5 ML INJECTION As Ordered ONE; -propofoL 200 MG/20 ML VIAL As Ordered ONE
[2024-06-13 18:20] VITALS: TEMP 96.9
[2024-06-13] MEDS: MORPHINE 2 MG/ML 1ML VIAL IV ONE (19:02)
[2024-06-13 19:08] LABS: BASO % 0.2 % (0.0-1.0); EOS # 0.2 10^3/uL (0.0-0.5); EOS % 2.9 % (0.0-3.0); HEMATOCRIT 41.6 % (42.0-52.0); HEMOGLOBIN 13.6 g/dl (13.5-17.5); LYMPH # 1.5 10^3/uL (1.5-5.0); LYMPH % 26.7 % (24.0-44.0); MEAN CORPUSCULAR HEMOGLOBIN 28.6 pg (27.0-33.0); MEAN CORPUSCULAR HGB CONC 32.7 g/dl (32.0-36.5); MEAN CORPUSCULAR VOLUME 87.4 fl (80.0-96.0); MONO # 0.6 10^3/uL (0.0-0.8); MONO % 11.4 % (2.0-8.0); NEUTROPHILS # 3.2 10^3/uL (1.5-8.5); NEUTROPHILS % 58.6 % (36.0-66.0); PLATELET COUNT, AUTOMATED 409 10^3/uL (150-450); RED BLOOD COUNT 4.76 10^6/uL (4.30-6.10); WHITE BLOOD COUNT 5.4 10^3/uL (4.0-10.0)
[2024-06-13 19:22] LABS: INR 0.98; PARTIAL THROMBOPLASTIN TIME 32.5 SECONDS (24.8-34.2); PROTHROMBIN TIME 13.3 SECONDS (12.5-14.5)
[2024-06-13] MEDS: D5W IV ONE (20:27)
[2024-06-13] MEDS: TRANEXAMIC ACID IV ONE (20:27)
[2024-06-13] MEDS: HYDROcodone/APAP LIQUID 7.5-325MG 15ML UDC (LORTAB ELIXIR) PO ONE (20:27)
[2024-06-13] MEDS ORDERED: HYDR1SOL22 PO (21:29)
[2024-06-13 21:30] VITALS: BP 127/59; O2SAT 99
[2024-06-14] MEDS ORDERED: HYDR1SOL22 PO (10:25)
== END 2024-06-13 21:43 | disposition home or self-care (01) ==
LOC: M ED 17:58 → EDBD 17:58 → M ED 21:43
DX: J95.830 Postprocedural hemorrhage of a respiratory system organ or structure following a respiratory system procedure (principal); G89.18 Other acute postprocedural pain; E11.9 Type 2 diabetes mellitus without complications; Z88.1 Allergy status to other antibiotic agents; Z91.041 Radiographic dye allergy status; Z79.84 Long term (current) use of oral hypoglycemic drugs; Z79.51 Long term (current) use of inhaled steroids; Z79.899 Other long term (current) drug therapy

== ENCOUNTER → 2024-07-02 | Outpatient (CLI) | payer OTHER ==
[~2024-07-02] MED LIST changes: +HYDR1SOL22 PO
[2024-07-02 09:28] LABS: HEMATOCRIT 44.4 % (42.0-52.0); HEMOGLOBIN 14.6 g/dl (13.5-17.5); MEAN CORPUSCULAR HEMOGLOBIN 28.2 pg (27.0-33.0); MEAN CORPUSCULAR HGB CONC 32.9 g/dl (32.0-36.5); MEAN CORPUSCULAR VOLUME 85.7 fl (80.0-96.0); PLATELET COUNT, AUTOMATED 379 10^3/uL (150-450); RED BLOOD COUNT 5.18 10^6/uL (4.30-6.10); WHITE BLOOD COUNT 5.3 10^3/uL (4.0-10.0)
[2024-07-02 09:53] LABS: ALBUMIN 3.8 G/DL (3.2-5.2); ALKALINE PHOSPHATASE 110 U/L (40-129); ALT/SGPT 68 U/L (7.0-40); AST/SGOT 20 U/L (<34); BILIRUBIN,TOTAL 0.5 MG/DL (0.3-1.2); BLOOD UREA NITROGEN 13 MG/DL (9-23); CALCIUM LEVEL 10.2 MG/DL (8.5-10.1); CARBON DIOXIDE LEVEL 30 MMOL/L (20-31); CHLORIDE LEVEL 100 MMOL/L (98-107); CHOLESTEROL LEVEL 152 MG/DL (<200); CHOLESTEROL RISK RATIO 5.82 (<5); CREATININE FOR GFR 0.71 MG/DL (0.70-1.30); GLOMERULAR FILTRATION RATE > 90.0 (>60); GLUCOSE, FASTING 120 MG/DL (60-100); HDL CHOLESTEROL 26.1 MG/DL (>40); LDL CHOLESTEROL 101.7 MG/DL (<100); NON-HDL-C 125.9 MG/DL; POTASSIUM SERUM 4.1 MMOL/L (3.5-5.1); SODIUM LEVEL 141 MMOL/L (136-145); TOTAL PROTEIN 7.8 G/DL (5.7-8.2); TRIGLYCERIDES LEVEL 121 MG/DL (<150)
== END ==
LOC: M LAB 09:05
PROVIDERS: ATTEND Nurse Practitioner Acute Care
DX: R94.31 Abnormal electrocardiogram [ECG] [EKG] (principal)

== ENCOUNTER → 2024-08-06 | Outpatient (REF) | payer OTHER ==
[~2024-08-06] MED LIST changes: +KETO120S5 TOP; -KETO2SHA8 TOP
== END ==
LOC: M LAB REF 11:54
PROVIDERS: ATTEND Physician Assistant
DX: B34.9 Viral infection, unspecified (principal); J02.9 Acute pharyngitis, unspecified

== ENCOUNTER 2024-09-25 21:04 | Emergency (ER) | payer OTHER ==
[~2024-09-25] VITALS: Ht 167.6 cm; Wt 83.6 kg
[2024-09-25 21:11] VITALS: BP 144/80; TEMP 97.3; O2SAT 97
[2024-09-25 22:34] LABS: BASO # 0.0 10^3/uL (0.0-0.2); BASO % 0.4 % (0.0-1.0); EOS # 0.1 10^3/uL (0.0-0.5); EOS % 2.5 % (0.0-3.0); LYMPH # 1.8 10^3/uL (1.5-5.0); LYMPH % 37.9 % (24.0-44.0); MONO # 0.4 10^3/uL (0.0-0.8); MONO % 8.4 % (2.0-8.0); NEUTROPHILS # 2.4 10^3/uL (1.5-8.5); NEUTROPHILS % 50.6 % (36.0-66.0); PLATELET COUNT, AUTOMATED 322 10^3/uL (150-450)
== END 2024-09-26 01:05 | disposition left against medical advice (07) ==
LOC: EDBD 21:04 → M ED 09-26 01:05
DX: Z53.21 Procedure and treatment not carried out due to patient leaving prior to being seen by health care provider (principal)

== ENCOUNTER → 2024-10-31 | Outpatient (REF) | payer OTHER ==
[2024-10-31 15:16] LABS: ALT/SGPT 50 U/L (7.0-40); AST/SGOT 21 U/L (<34); CALCIUM LEVEL 9.3 MG/DL (8.5-10.1); CARBON DIOXIDE LEVEL 26 MMOL/L (20-31); CHLORIDE LEVEL 100 MMOL/L (98-107); CHOLESTEROL LEVEL 145 MG/DL (<200); CHOLESTEROL RISK RATIO 5.75 (<5); CREATININE FOR GFR 0.72 MG/DL (0.70-1.30); GLOMERULAR FILTRATION RATE > 90.0 (>60); LDL CHOLESTEROL 93.0 MG/DL (<100); NON-HDL-C 119.8 MG/DL; POTASSIUM SERUM 4.1 MMOL/L (3.5-5.1); SODIUM LEVEL 137 MMOL/L (136-145); TRIGLYCERIDES LEVEL 134 MG/DL (<150)
== END ==
LOC: M LAB REF 14:24
PROVIDERS: ATTEND Student in an Organized Health Care Education/Training Program
DX: E11.9 Type 2 diabetes mellitus without complications (principal); R79.89 Other specified abnormal findings of blood chemistry

== ENCOUNTER → 2024-12-26 | Outpatient (REF) | payer OTHER | LOC: M LAB REF 17:12 | PROVIDERS: ATTEND Physician Assistant | DX: B34.9 Viral infection, unspecified (principal); J02.9 Acute pharyngitis, unspecified ==